=== PATIENT | female | born 1995 | race Caucasian/White ===

== ENCOUNTER 2016-11-20 13:34 | Emergency (ER) | payer OTHER ==
[2016-11-20 13:53] VITALS: BP 133/73
--- NOTE | 2016-11-20 13:57 | UC ---
Respiratory Complaint HPI - HPI Summary HPI Summary: Cough and wheeze for a couple of days, throat hurts with cough - History of Current Complaint Chief Complaint: UCRespiratory Stated Complaint: COUGH Time Seen by Provider: 11/20/16 13:50 Hx Obtained From: Patient Hx Last Menstrual Period: 11/10/16 ?: No Onset/Duration: Sudden Onset, Lasting Days - 3 Timing: Constant Severity Initially: Mild Severity Currently: Mild Pain Intensity: 5 Pain Scale Used: 0-10 Numeric Character: Cough: Nonproductive Aggravating Factors: Nothing Associated Signs And Symptoms: Positive: Pleuritic Chest Pain, URI - Allergies/Home Medications Allergies/Adverse Reactions: Allergies Allergy/AdvReac Type Severity Reaction Status Date / Time No Known Allergies Allergy Verified 02/28/16 21:28 PMH/Surg Hx/FS Hx/Imm Hx Previously Healthy: No Endocrine History Of: Reports: Diabetes Cardiovascular History Of: Denies: Hypertension, Congestive Heart Failure Respiratory History Of: Reports: Asthma GI/ History Of: Denies: Renal Disease Psychological History Of: Reports: Anxiety, Depression - Surgical History Surgical History: None - Family History Known Family History: Positive: None Family History: no cardio vascular issues reported in family lineage - Social History Occupation: Unemployed Lives: With Family Alcohol Use: None Substance Use Type: None Smoking Status (MU): Never Smoked Tobacco - Immunization History Most Recent Influenza Vaccination: 2016 Most Recent Tetanus Shot: Unknown Most Recent Pneumonia Vaccination: Never Review of Systems Constitutional: Negative Skin: Negative Eyes: Negative ENT: Sore Throat - with cough Respiratory: Cough Cardiovascular: Negative Gastrointestinal: Negative Genitourinary: Negative Motor: Negative Neurovascular: Negative Musculoskeletal: Negative Neurological: Negative Psychological: Negative All Other Systems Reviewed And Are Negative: Yes Physical Exam Triage Information Reviewed: Yes Appearance: No Pain Distress, Ill-Appearing - mild, Obese Vital Signs: Initial Vital Signs Temp 99.0 F 11/20/16 13:50 Pulse 85 11/20/16 13:50 Resp 16 11/20/16 13:50 BP 133/73 11/20/16 13:50 Pulse Ox 99 11/20/16 13:50 Vital Signs Reviewed: Yes Eye Exam: Normal Eyes: Positive: Conjunctiva Clear ENT Exam: Normal ENT: Positive: Normal ENT inspection, Hearing grossly normal, Pharynx normal, TMs normal. Negative: Nasal congestion, Nasal drainage, Tonsillar swelling, Tonsillar exudate, Trismus, Muffled/hoarse voice Dental Exam: Normal Neck exam: Normal Neck: Positive: Supple, Nontender, No Lymphadenopathy Respiratory Exam: Normal Respiratory: Positive: Chest non-tender, No respiratory distress, No accessory muscle use, Wheezing Cardiovascular Exam: Normal Cardiovascular: Positive: RRR, No Murmur, Pulses Normal, Brisk Capillary Refill Musculoskeletal Exam: Normal Musculoskeletal: Positive: Strength Intact, ROM Intact, No Edema Neurological Exam: Normal Neurological: Positive: Alert, Muscle Tone Normal Psychological Exam: Normal Skin Exam: Normal UC Diagnostic Evaluation - Laboratory O2 Sat by Pulse Oximetry: 99 Respiratory Course/Dx - Course Course Of Treatment: Zithromax, ibuprofen, albuterol inhaler, increase fluids, follow with pcp - Differential Dx/Diagnosis Differential Diagnosis/HQI/PQRI: Asthma, Bronchitis, Laryngitis, Lower Resp Infection, Sinusitis Provider Diagnoses: Bronchitis, IDDM Type 1 Discharge - Discharge Plan Condition: Stable Disposition: AGAINST MEDICAL ADVICE Prescriptions: Albuterol HFA INHALER* [Ventolin HFA Inhaler*] 2 puff INH Q6H PRN #1 mdi PRN Reason: Cough/wheeze Azithromycin TAB* [Zithromax TAB (Z-HANK) 250 mg #6 tabs] 2 tab PO .TODAY, THEN 1 DAILY #1 hank Patient Education Materials: How to Use a Metered-Dose Inhaler (ED), Acute Bronchitis (ED) Referrals: Vasquez Crowder, PHILOS[facility]HY [facility] [Primary Care Provider] - If Needed
== END 2016-11-20 14:05 | disposition left against medical advice (07) ==
LOC: UCEAST 13:34
DX: J40 Bronchitis, not specified as acute or chronic (principal); E10.9 Type 1 diabetes mellitus without complications; E66.9 Obesity, unspecified; Z79.4 Long term (current) use of insulin
CPT/HCPCS: 99212; G0463

== ENCOUNTER 2017-04-28 00:27 | Emergency (ER) | payer OTHER ==
[2017-04-28] MEDS ORDERED: Sulfamethox/Trimethoprim DS 800/160* TAB PO ONE (02:08)
--- NOTE | 2017-04-28 02:15 | ED ---
Skin Complaint - HPI Summary HPI Summary: Pt here w/ Lt breast wound x 5 days. Started as pimple then ruptured - pressure relieved but area is sore, draining and sugar is higher than usual (Type 1 diabetes). Denies fever, chills, nausea, vomiting. Admits to h/o recurrent skin infections but she's not sure the organism nor which antibiotics work best for her. She does recall she had IV vancomycin at [facility] last time she was there for a skin infection. No other issues to report. - History of Current Complaint Chief Complaint: EDRashSkinAbscess Time Seen by Provider: 04/28/17 01:44 Stated Complaint: BOIL UNDER LT BREAST Hx Obtained From: Patient, Family/Rn Intern - boyfriend Hx Last Menstrual Period: 11/10/16 Pain Intensity: 8 - Allergy/Home Medications Allergies/Adverse Reactions: Allergies Allergy/AdvReac Type Severity Reaction Status Date / Time No Known Allergies Allergy Verified 02/28/16 21:28 PMH/Surg Hx/FS Hx/Imm Hx Previously Healthy: Yes Endocrine/Hematology History: Reports: Hx Diabetes - type 1 - uses insulin pump Denies: Hx Anticoagulant Therapy, Hx Blood Disorders Cardiovascular History: Denies: Hx Congestive Heart Failure, Hx Hypertension Respiratory History: Reports: Hx Asthma History: Denies: Hx Renal Disease Sensory History: Reports: Hx Contacts or Glasses Opthamlomology History: Reports: Hx Contacts or Glasses Psychiatric History: Reports: Hx Anxiety, Hx Depression - Immunization History Date of Tetanus Vaccine: Unk Date of Influenza Vaccine: Fall 2014 Infectious Disease History: No Infectious Disease History: Reports: Hx of Known/Suspected MRSA - tx'd w/ IV vancomycin at [facility] - unsure of MRSA status Denies: Traveled Outside the [place] in Last 30 Days - Family History Known Family History: Positive: Diabetes - sister and grandmother Family History: no cardio vascular issues reported in family lineage - Social History Occupation: Unemployed Lives: With Family Alcohol Use: None Hx Substance Use: No Substance Use Type: Reports: None Hx Tobacco Use: No Smoking Status (MU): Never Smoked Tobacco Review of Systems Constitutional: Negative Negative: Fever, Chills, Fatigue Cardiovascular: Negative Respiratory: Negative Gastrointestinal: Negative Positive: no symptoms reported Musculoskeletal: Negative Skin: Other - see HPI Neurological: Negative Negative: Headache Psychological: Normal All Other Systems Reviewed And Are Negative: Yes Physical Exam Triage Information Reviewed: Yes Vital Signs On Initial Exam: Initial Vitals Temp Pulse Resp BP Pulse Ox 96.5 F 106 22 131/55 97 04/28/17 00:29 04/28/17 00:29 04/28/17 00:29 04/28/17 00:29 04/28/17 00:29 Vital Signs Reviewed: Yes Appearance: Positive: Well-Appearing, No Pain Distress, Obese Skin: Positive: Warm - open dime sized wound over Lt inferior breast w/ surrounding erythema - appears to be ulcerated w/ dying tissue present (yellow/ green - attached to underlying tissue which is granular and pink - friable) - drainage is serosanginous w/ tinged purulent; 3mm area of similar wound on RUQ - covered w/ bandaid - no drainage, no erythema Head/Face: Positive: Normal Head/Face Inspection Eyes: Positive: EOMI ENT: Positive: Hearing grossly normal Respiratory/Lung Sounds: Positive: Breath Sounds Present Cardiovascular: Positive: Normal, RRR Musculoskeletal: Positive: Normal, Strength/ROM Intact Neurological: Positive: Normal, Alert, Oriented to Person Place, Time, CN Intact II-III Psychiatric: Positive: Normal Diagnostics - Vital Signs Vital Signs Temp Pulse Resp BP Pulse Ox 04/28/17 00:29 96.5 F 106 22 131/55 97 - Laboratory Lab Statement: Any lab studies that have been ordered have been reviewed, and results considered in the medical decision making process. Course/Dx - Course Course Of Treatment: Pt appears to have rutpured left breast abscess w/ inflammation, possibly infection. Offered to anesthestize area and debride however pt prefers to simply start anbx and f/u w/ PCP. Will cover for MRSA as she has h/o vancomycin tx at [facility] for skin infection in the past. Cx taken today - will call w/ results and change medication as needed. Reviewed danger s/ sx of when to return to ED. She will continue to monitor glucose levels as well. - Diagnoses Provider Diagnoses: Left breast abscess Discharge - Discharge Plan Condition: Stable Disposition: HOME Prescriptions: Sulfamethox/Trimethoprim DS* [Bactrim DS 800/160 TAB*] 1 tab PO BID #19 tab Patient Education Materials: Abscess (ED) Referrals: Vasquez Crowder NP [Primary Care Provider] - Additional Instructions: Wash area with soap and water 2x day - pat dry with clean cloth and redress with gauze Complete antibiotic as directed You may take ibuprofen 600mg every 6 hours with food as needed for pain You may also alternate heat and ice for pain Follow-up with your PCP for wound recheck by Wednesday. Call tomorrow to schedule an appointment. *If you develop fever, chills, vomiting, return to ED
[2017-04-28 02:16] VITALS: BP 117/61
--- NOTE | 2017-05-03 09:08 | PN ---
Progress Note - Progress Note Date of Service: 04/28/17 Note: Wound culture grew s. aureus withi negative MRSA Patient placed on Bactrim prior to discharge. Culture shows sensitivities to Bactrim. Nothing further at this time, Kayla Garcia PA-C
== END 2017-04-28 02:24 | disposition home or self-care (01) ==
LOC: ED 00:27
DX: N61.1 Abscess of the breast and nipple (principal); E10.8 Type 1 diabetes mellitus with unspecified complications
CPT/HCPCS: 87070; 87077; 87186; 87205; 87640; 87641; 99282; A9270-GY

== ENCOUNTER 2018-04-30 20:43 | Emergency (ER) | payer OTHER ==
--- NOTE | 2018-04-30 21:23 | ED ---
GI/ HPI - HPI Summary HPI Summary: 22-year-old female presents with flank pain for the past 4 days. She has been having dysuria. She also been having a cough. No chest pain. She notes occasional shortness breath. She has history of asthma. She notes nausea but no vomiting. No fevers. She does have type 1 diabetic. States that when this started her pump was not working but she has since fixed her pump and her her sugars have been normal. She denies any constipation but admits to diarrhea. She admits to lower bowel pain. No vaginal discharge. She has history UTIs denies history of pyelonephritis. no Hematuria. - History of Current Complaint Chief Complaint: EDFlankPain Time Seen by Provider: 04/30/18 21:15 Stated Complaint: BILATERAL KIDNEY PAIN Hx Last Menstrual Period: 11/10/16 Pain Intensity: 8 - Allergy/Home Medications Allergies/Adverse Reactions: Allergies Allergy/AdvReac Type Severity Reaction Status Date / Time vancomycin Allergy Hives Verified 04/30/18 20:46 PMH/Surg Hx/FS Hx/Imm Hx Endocrine/Hematology History: Reports: Hx Diabetes - type 1 - uses insulin pump Denies: Hx Anticoagulant Therapy, Hx Blood Disorders Cardiovascular History: Denies: Hx Congestive Heart Failure, Hx Hypertension Respiratory History: Reports: Hx Asthma History: Denies: Hx Renal Disease Sensory History: Reports: Hx Contacts or Glasses Opthamlomology History: Reports: Hx Contacts or Glasses Psychiatric History: Reports: Hx Anxiety, Hx Depression - Immunization History Date of Tetanus Vaccine: Unk Date of Influenza Vaccine: Fall 2014 Infectious Disease History: No Infectious Disease History: Reports: Hx of Known/Suspected MRSA - tx'd w/ IV vancomycin at [facility] - unsure of MRSA status Denies: Traveled Outside the in Last 30 Days - Family History Known Family History: Positive: None, Diabetes - sister and grandmother Family History: no cardio vascular issues reported in family lineage - Social History Alcohol Use: None Hx Substance Use: No Substance Use Type: Reports: None Hx Tobacco Use: No Smoking Status (MU): Never Smoked Tobacco Review of Systems Negative: Fever Negative: Chest Pain Negative: Shortness Of Breath Positive: Abdominal Pain, Nausea. Negative: Vomiting Positive: dysuria, flank pain All Other Systems Reviewed And Are Negative: Yes Physical Exam Triage Information Reviewed: Yes Vital Signs On Initial Exam: Initial Vitals Temp Pulse Resp BP Pulse Ox 97.6 F 100 20 146/78 97 04/30/18 20:45 04/30/18 20:45 04/30/18 20:45 04/30/18 20:45 04/30/18 20:45 Vital Signs Reviewed: Yes Appearance: Positive: Well-Appearing Skin: Positive: Warm, Dry Head/Face: Positive: Normal Head/Face Inspection Eyes: Positive: Normal, Conjunctiva Clear ENT: Positive: Pharynx normal Respiratory/Lung Sounds: Positive: Clear to Auscultation, Breath Sounds Present Cardiovascular: Positive: Normal, RRR Abdomen Description: Positive: Nontender, Soft, CVA Tenderness (R), CVA Tenderness (L) Bowel Sounds: Positive: Present Musculoskeletal: Positive: Normal Neurological: Positive: Normal Psychiatric: Positive: Normal Diagnostics - Vital Signs Vital Signs Temp Pulse Resp BP Pulse Ox 04/30/18 20:45 97.6 F 100 20 146/78 97 - Laboratory Result Diagrams: 04/30/18 21:30 04/30/18 21:30 Lab Statement: Any lab studies that have been ordered have been reviewed, and results considered in the medical decision making process. - Radiology chest Xray Interpretation: No Acute Changes Radiology Interpretation Completed By: ED Physician - Ultrasound No standard instances Ultrasound Interpretation: No Acute Changes Ultrasound Interpretation Completed By: Radiologist HARINI Course/Dx - Course Course Of Treatment: 22-year-old female presents with flank pain for the past 4 days. She has been having dysuria. She also been having a cough. No chest pain. She notes occasional shortness breath. She has history of asthma. She notes nausea but no vomiting. No fevers. She does have type 1 diabetic. States that when this started her pump was not working but she has since fixed her pump and her her sugars have been normal. She denies any constipation but admits to diarrhea. She admits to lower bowel pain. No vaginal discharge. She has history UTIs denies history of pyelonephritis. no Hematuria. on exam has tenderness CVA. lungs CTA. nontender abd. wbc slightly elevated. urine normal. renal u/s normal. chest xray normal. will give tessalon as likely bronchitis causing referred pain in chest wall. patient states asthma is well controlled so will not add on steriod. pateitn understand and agrees with plan. - Diagnoses Differential Diagnoses - Female: Pyelonephritis, Urinary Tract Infection, Ureteral Calculi Provider Diagnoses: Flank pain, Cough Discharge - Sign-Out/Discharge Documenting (check all that apply): Patient Departure - Discharge Plan Condition: Good Disposition: HOME Prescriptions: Benzonatate CAP* [Tessalon 100 MG CAP*] 100 mg PO TID #21 cap Ibuprofen TAB* [Motrin TAB* 600 MG] 600 mg PO Q8H PRN #20 tab PRN Reason: Pain Patient Education Materials: Acute Bronchitis (ED) Referrals: Vasquez Crowder NP [Primary Care Provider] - Additional Instructions: symptoms likely due to bronchitis Use Tessalon three times a day for cough take tyenlol or ibuprofen every 6 hours as needed for pain Follow up with primary care physician in 5 days Return to ED if develop any new or worsening symptoms - Billing Disposition and Condition Condition: GOOD Disposition: Home
[2018-04-30] MEDS ORDERED: Ondansetron ODT TAB* 4 MG PO ONE (21:25)
[2018-04-30 21:39] LABS: Urine Appearance Clear; Urine Blood Negative (Negative); Urine Color Straw; Urine Ketones Negative (Negative); Urine Protein Negative (Negative); Urine Specific Gravity 1.004 (1.010-1.030); Urine Urobilinogen Negative (Negative)
[2018-04-30 21:46] LABS: ABS Basophils 0 10^3/ul (0-0.2); ABS Eosinophils 0.5 10^3/ul (0-0.6); ABS Lymphocytes 2.6 10^3/ul (1.0-4.8); ABS Monocytes 0.8 10^3/ul (0-0.8); ABS Neutrophils 7.9 10^3/ul (1.5-7.7); ABS Nucleated RBC 0 10^3/ul; Eosinophil % 4.6 % (0-6); Hematocrit 38 % (35-47); Hemoglobin 12.8 g/dl (12.0-16.0); Lymphocyte % 22.2 % (25-47); Mean Corpuscular HGB Conc 33 g/dl (31-36); Mean Corpuscular Hemoglobin 30 pg (27-31); Mean Corpuscular Volume 90 fL (80-97); Mean Platelet Volume 7.8 um3 (7.4-10.4); Nucleated Red Blood Cells % 0; Platelet Count 354 10^3/ul (150-450); Red Blood Count 4.28 10^6/ul (4.00-5.40); Red Cell Distribution Width 14 % (10.5-15); White Blood Count 11.9 10^3/ul (3.5-10.8)
--- NOTE | 2018-04-30 21:57 | RAD ---
EXAM: US Retroperitoneal Complete, Renal CLINICAL HISTORY: 22 years old, female; Pain; Other: Flank; Additional info: Bilateral flank pain TECHNIQUE: Real-time ultrasound of the retroperitoneum (complete) with image documentation. COMPARISON: No relevant prior studies available. FINDINGS: Right kidney: 11.1 x 4.9 x 4.2 cm. No hydronephrosis or nephrolithiasis. Renal cortical thickness is normal. Blood flow normal. Left kidney: 11 x 4.3 x 6 cm. No hydronephrosis or nephrolithiasis. Renal cortical thickness is normal. Normal blood flow. IMPRESSION: Normal appearance to the right and left kidneys. No hydronephrosis or nephrolithiasis. R0
[2018-04-30] MEDS ORDERED: Ibuprofen TAB* 600 MG PO ONE (22:55)
[2018-04-30] MEDS ORDERED: Benzonatate CAP* 100 MG PO ONE (22:55)
[2018-04-30 23:44] VITALS: BP 142/77
--- NOTE | 2018-05-01 07:32 | RAD ---
HISTORY: cough COMPARISONS: January 05, 2016 VIEWS: 4: Frontal dual-energy and lateral views of the chest. FINDINGS: CARDIOMEDIASTINAL SILHOUETTE: The cardiomediastinal silhouette is normal. REBEKAH: The rebekah are normal. PLEURA: The costophrenic angles are sharp. No pleural abnormalities are noted. LUNG PARENCHYMA: The lungs are clear. ABDOMEN: The upper abdomen is clear. There is no subphrenic gas. BONES AND SOFT TISSUES: No bone or soft tissue abnormalities are noted. OTHER: None. IMPRESSION: NO ACTIVE CARDIOPULMONARY DISEASE. R0
== END 2018-04-30 23:45 | disposition home or self-care (01) ==
LOC: ED 20:43
DX: R10.9 Unspecified abdominal pain (principal); R05 Cough; E10.9 Type 1 diabetes mellitus without complications; J45.909 Unspecified asthma, uncomplicated; Z88.3 Allergy status to other anti-infective agents; Z79.4 Long term (current) use of insulin; Z96.41 Presence of insulin pump (external) (internal); Z87.440 Personal history of urinary (tract) infections
CPT/HCPCS: 36415; 71046; 76775; 80053; 81003; 84702; 85025; 85379; 86140; 99283; A9270-GY

== ENCOUNTER 2018-07-04 21:17 | Emergency (ER) | payer OTHER ==
[2018-07-04 22:11] LABS: ABS Basophils 0 10^3/ul (0-0.2); ABS Eosinophils 0.8 10^3/ul (0-0.6); ABS Lymphocytes 2.5 10^3/ul (1.0-4.8); ABS Monocytes 0.8 10^3/ul (0-0.8); ABS Neutrophils 6.4 10^3/ul (1.5-7.7); ABS Nucleated RBC 0 10^3/ul; Eosinophil % 7.8 % (0-6); Hematocrit 42 % (35-47); Hemoglobin 14.2 g/dl (12.0-16.0); Lymphocyte % 23.7 % (25-47); Mean Corpuscular HGB Conc 34 g/dl (31-36); Mean Corpuscular Hemoglobin 31 pg (27-31); Mean Corpuscular Volume 90 fL (80-97); Mean Platelet Volume 7.8 um3 (7.4-10.4); Nucleated Red Blood Cells % 0; Platelet Count 355 10^3/ul (150-450); Red Blood Count 4.64 10^6/ul (4.00-5.40); Red Cell Distribution Width 13 % (10.5-15); White Blood Count 10.5 10^3/ul (3.5-10.8)
[2018-07-04 22:27] LABS: EGFR Non-African American 82.2 (>60)
[2018-07-04 23:01] LABS: Urine Appearance Clear; Urine Blood Negative (Negative); Urine Color Colorless; Urine Ketones Negative (Negative); Urine Protein Negative (Negative); Urine Specific Gravity 1.002 (1.010-1.030); Urine Urobilinogen Negative (Negative)
--- NOTE | 2018-07-04 23:31 | ED ---
HPI Diabetic - HPI Summary HPI Summary: 22-year-old female presents with possible DKA today. She states that her insulin pump ran out of insulin. She states today she noticed that her sugars were high today and tested pos for ketones. her primary told to come here. She admits to headache. She admits to frequent urination. She states she may be as her period is late. She is a type I diabetic and has history of asthma. She denies any cough. No abd pain. She states she is nauseous denies any vomiting. No chest pain or shortness breath. - History Of Current Complaint Chief Complaint: EDDiabeticProb Time Seen by Provider: 07/04/18 22:32 Hx Last Menstrual Period: 11/10/16 - Allergies/Home Medications Allergies/Adverse Reactions: Allergies Allergy/AdvReac Type Severity Reaction Status Date / Time vancomycin Allergy Hives Verified 04/30/18 20:46 wheat Allergy Diarrhea Verified 07/04/18 21:25 Home Medications: Home Medications Cholecalciferol TAB* [Vitamin D TAB*] 1,000 unit PO DAILY 07/04/18 [History Confirmed 07/04/18] Loratadine [Claritin 10 MG CAP] 10 mg PO DAILY 07/04/18 [History Confirmed 07/04] PMH/Surg Hx/FS Hx/Imm Hx Endocrine/Hematology History: Reports: Hx Diabetes - type 1 - uses insulin pump Denies: Hx Anticoagulant Therapy, Hx Blood Disorders Cardiovascular History: Denies: Hx Congestive Heart Failure, Hx Hypertension Respiratory History: Reports: Hx Asthma History: Denies: Hx Renal Disease Sensory History: Reports: Hx Contacts or Glasses Opthamlomology History: Reports: Hx Contacts or Glasses Psychiatric History: Reports: Hx Anxiety, Hx Depression - Immunization History Date of Tetanus Vaccine: Unk Date of Influenza Vaccine: Fall 2014 Infectious Disease History: No Infectious Disease History: Reports: Hx of Known/Suspected MRSA - tx'd w/ IV vancomycin at [facility] - unsure of MRSA status Denies: Traveled Outside the [place] in Last 30 Days - Family History Known Family History: Positive: None, Diabetes - sister and grandmother Family History: no cardio vascular issues reported in family lineage - Social History Alcohol Use: Occasionally Hx Substance Use: No Substance Use Type: Reports: Marijuana Hx Tobacco Use: No Smoking Status (MU): Never Smoked Tobacco Review of Systems Negative: Fever Negative: Chest Pain Negative: Shortness Of Breath Positive: Headache All Other Systems Reviewed And Are Negative: Yes Physical Exam Triage Information Reviewed: Yes Vital Signs On Initial Exam: Initial Vitals Temp Pulse Resp BP Pulse Ox 98.4 F 98 16 136/100 98 07/04/18 21:22 07/04/18 21:22 07/04/18 21:22 07/04/18 21:22 07/04/18 21:22 Vital Signs Reviewed: Yes Appearance: Positive: Well-Appearing Skin: Positive: Warm, Dry Head/Face: Positive: Normal Head/Face Inspection Eyes: Positive: Normal, Conjunctiva Clear ENT: Positive: Pharynx normal Respiratory/Lung Sounds: Positive: Clear to Auscultation, Breath Sounds Present Cardiovascular: Positive: Normal, RRR Abdomen Description: Positive: Nontender, Soft Bowel Sounds: Positive: Present Musculoskeletal: Positive: Normal Neurological: Positive: Sensory/Motor Intact, Alert, Oriented to Person Place, Time, CN Intact II-III Psychiatric: Positive: Normal Diagnostics - Vital Signs Vital Signs Temp Pulse Resp BP Pulse Ox 07/04/18 21:22 98.4 F 98 16 136/100 98 - Laboratory Lab Results: Lab Results 07/04/18 07/04/18 07/04/18 Range/Units 21:34 21:59 22:00 WBC 10.5 (3.5-10.8) 10^3/ul RBC 4.64 (4.00-5.40) 10^6/ul Hgb 14.2 (12.0-16.0) g/dl Hct 42 (35-47) % MCV 90 (80-97) fL MCH 31 (27-31) pg MCHC 34 (31-36) g/dl RDW 13 (10.5-15) % Plt Count 355 (150-450) 10^3/ul MPV 7.8 (7.4-10.4) um3 Neut % (Auto) 60.8 (38-83) % Lymph % (Auto) 23.7 L (25-47) % [place] % (Auto) 7.4 H (0-7) % Eos % (Auto) 7.8 H (0-6) % Baso % (Auto) 0.3 (0-2) % Absolute Neuts (auto) 6.4 (1.5-7.7) 10^3/ul Absolute Lymphs (auto) 2.5 (1.0-4.8) 10^3/ul Absolute Monos (auto) 0.8 (0-0.8) 10^3/ul Absolute Eos (auto) 0.8 H (0-0.6) 10^3/ul Absolute Basos (auto) 0 (0-0.2) 10^3/ul Absolute Nucleated RBC 0 10^3/ul Nucleated RBC % 0 VBG pH (7.33-7.43) VBG pCO2 (41-51) mmHg VBG pO2 (35-45) mmHg VBG HCO3 (24-28) mmol/L VBG O2 Saturation (70-80) % VBG Base Excess (0-4) Sodium 137 (135-145) mmol/L Potassium 4.1 (3.5-5.0) mmol/L Chloride 103 (101-111) mmol/L Carbon Dioxide 28 (22-32) mmol/L Anion Gap 6 (2-11) mmol/L BUN 13 (6-24) mg/dL Creatinine 0.87 (0.51-0.95) mg/dL Est GFR ( Amer) 99.5 (>60) Est GFR (Non-Af Amer) 82.2 (>60) BUN/Creatinine Ratio 14.9 (8-20) Glucose 120 H (70-100) mg/dL POC Glucose (mg/dL) 125 H (70-100) mg/dL Lactic Acid (0.5-2.0) mmol/L Calcium 9.8 (8.6-10.3) mg/dL Total Bilirubin 0.30 (0.2-1.0) mg/dL AST 16 (13-39) U/L ALT 16 (7-52) U/L Alkaline Phosphatase 131 H (34-104) U/L C-Reactive Protein 21.34 H (<8.01) mg/L Total Protein 7.6 (6.4-8.9) g/dL Albumin 4.1 (3.2-5.2) g/dL Globulin 3.5 (2-4) g/dL Albumin/Globulin Ratio 1.2 (1-3) Beta HCG, Quant < 0.60 mIU/mL Urine Color Urine Appearance Urine pH (5-9) Ur Specific [place] (1.010-1.030) Urine Protein (Negative) Urine Ketones (Negative) Urine Blood (Negative) Urine Nitrate (Negative) Urine Bilirubin (Negative) Urine Urobilinogen (Negative) Ur Leukocyte Esterase (Negative) Urine Glucose (Negative) 07/04/18 07/04/18 07/04/18 Range/Units 22:00 22:00 22:54 WBC (3.5-10.8) 10^3/ul RBC (4.00-5.40) 10^6/ul Hgb (12.0-16.0) g/dl Hct (35-47) % MCV (80-97) fL MCH (27-31) pg MCHC (31-36) g/dl RDW (10.5-15) % Plt Count (150-450) 10^3/ul MPV (7.4-10.4) um3 Neut % (Auto) (38-83) % Lymph % (Auto) (25-47) % [place] % (Auto) (0-7) % Eos % (Auto) (0-6) % Baso % (Auto) (0-2) % Absolute Neuts (auto) (1.5-7.7) 10^3/ul Absolute Lymphs (auto) (1.0-4.8) 10^3/ul Absolute Monos (auto) (0-0.8) 10^3/ul Absolute Eos (auto) (0-0.6) 10^3/ul Absolute Basos (auto) (0-0.2) 10^3/ul Absolute Nucleated RBC 10^3/ul Nucleated RBC % VBG pH 7.38 (7.33-7.43) VBG pCO2 50 (41-51) mmHg VBG pO2 31 L (35-45) mmHg VBG HCO3 26.5 (24-28) mmol/L VBG O2 Saturation 68.6 L (70-80) % VBG Base Excess 3.3 (0-4) Sodium (135-145) mmol/L Potassium (3.5-5.0) mmol/L Chloride (101-111) mmol/L Carbon Dioxide (22-32) mmol/L Anion Gap (2-11) mmol/L BUN (6-24) mg/dL Creatinine (0.51-0.95) mg/dL Est GFR ( Amer) (>60) Est GFR (Non-Af Amer) (>60) BUN/Creatinine Ratio (8-20) Glucose (70-100) mg/dL POC Glucose (mg/dL) (70-100) mg/dL Lactic Acid 1.2 (0.5-2.0) mmol/L Calcium (8.6-10.3) mg/dL Total Bilirubin (0.2-1.0) mg/dL AST (13-39) U/L ALT (7-52) U/L Alkaline Phosphatase (34-104) U/L C-Reactive Protein (<8.01) mg/L Total Protein (6.4-8.9) g/dL Albumin (3.2-5.2) g/dL Globulin (2-4) g/dL Albumin/Globulin Ratio (1-3) Beta HCG, Quant mIU/mL Urine Color Colorless Urine Appearance Clear Urine pH 6.0 (5-9) Ur Specific [place] 1.002 L (1.010-1.030) Urine Protein Negative (Negative) Urine Ketones Negative (Negative) Urine Blood Negative (Negative) Urine Nitrate Negative (Negative) Urine Bilirubin Negative (Negative) Urine Urobilinogen Negative (Negative) Ur Leukocyte Esterase Negative (Negative) Urine Glucose Negative (Negative) Result Diagrams: 07/04/18 21:59 07/04/18 22:00 Lab Statement: Any lab studies that have been ordered have been reviewed, and results considered in the medical decision making process. Diabetic Course/Dx - Course Course Of Treatment: 22-year-old female presents with possible DKA today. She states that her insulin pump ran out of insulin. She states today she noticed that her sugars were high today and tested pos for ketones. her primary told to come here. She admits to headache. She admits to frequent urination. She states she may be as her period is late. She is a type I diabetic and has history of asthma. She denies any cough. No abd pain. She states she is nauseous denies any vomiting. No chest pain or shortness breath. On exam normal neuro exam. Labs white blood count normal. Glucose is normal. vbg normal bicarb and lactic normal. No ketones in urine. Not . Discuss is not currently DKA. Told to continue giving insulin and follow with primary about insulin for insulin pump. Gave Toradol for her headache. Patient understands and agrees with plan. - Diagnoses Differential Dx: Diabetic Ketoacidosis, Hyperglycemia, Hyperosmolar State Provider Diagnoses: Diabetes, Headache Discharge - Sign-Out/Discharge Documenting (check all that apply): Patient Departure - Discharge Plan Condition: Good Disposition: HOME Referrals: Vasquez Crowder NP [Primary Care Provider] - Additional Instructions: Follow up with primary Return to ED if develop any new or worsening symptoms - Billing Disposition and Condition Condition: GOOD Disposition: Home
[2018-07-04] MEDS ORDERED: Ketorolac INJ* 30 MG/ML 1 ML VIAL IM ONE (23:34)
[2018-07-04 23:51] VITALS: BP 117/69
== END 2018-07-04 23:50 | disposition home or self-care (01) ==
LOC: ED 21:17
DX: R51 Headache (principal); E11.9 Type 2 diabetes mellitus without complications; R35.0 Frequency of micturition
CPT/HCPCS: 36415; 80053; 81003; 82803; 83605; 84702; 85025; 86140; 96372; 99282; J1885

== ENCOUNTER 2019-02-01 11:14 | Emergency (ER) | payer OTHER ==
[2019-02-01 11:33] VITALS: BP 150/92
[2019-02-01] MEDS ORDERED: Ondansetron ODT TAB* 4 MG SL ONE (12:13)
--- NOTE | 2019-02-01 12:31 | UC ---
Abdominal Pain Female HPI - HPI Summary HPI Summary: 23 yo female presents with cough and chest congestion for the last 4-5 days. Today she woke up and vomited 2-3 times. Has been tolerating fluids and bites of food since that time. She states she is a type 1 diabetic and is concerned what her sugars may be as she does not check them daily. She does not smoke. Has not been taking anything OTC. Denies fever, chills, SOB, chest pain, abdominal pain. She has a hx of asthma and had an albuterol inhaler, but is has misplaced it and has not used it in a long time. - History of Current Complaint Chief Complaint: UCGI Stated Complaint: VOMITING CHEST CONGESTION Time Seen by Provider: 02/01/19 12:02 Hx Obtained From: Patient Hx Last Menstrual Period: 11/10/16 Onset/Duration: Gradual Onset Severity Initially: Moderate Severity Currently: Moderate Pain Intensity: 6 Pain Scale Used: 0-10 Numeric Allergies/Adverse Reactions: Allergies Allergy/AdvReac Type Severity Reaction Status Date / Time vancomycin Allergy Hives Verified 02/01/19 11:33 wheat Allergy Diarrhea Verified 02/01/19 11:33 Home Medications: Home Medications Insulin Lispro [Admelog] 100 unit SQ 02/01/19 [History] PMH/Surg Hx/FS Hx/Imm Hx Endocrine History: Diabetes Respiratory History: Asthma Other History Of: Negative For: Anticoagulant Therapy - Surgical History Surgical History: None - Family History Known Family History: Positive: Diabetes - sister and grandmother Family History: no cardio vascular issues reported in family lineage - Social History Occupation: Employed Full-time Alcohol Use: Occasionally Substance Use Type: None Smoking Status (MU): Never Smoked Tobacco - Immunization History Most Recent Influenza Vaccination: 2016 Most Recent Tetanus Shot: Unknown Most Recent Pneumonia Vaccination: Never Review of Systems All Other Systems Reviewed And Are Negative: Yes Constitutional: Positive: Negative Skin: Positive: Negative Eyes: Positive: Negative ENT: Positive: Nasal Discharge, Sinus Congestion, Sinus Pain/Tenderness Respiratory: Positive: Cough Cardiovascular: Positive: Negative Gastrointestinal: Positive: Vomiting, Nausea Genitourinary: Positive: Negative Neurovascular: Positive: Negative Neurological: Positive: Negative Psychological: Positive: Negative Physical Exam - Summary Physical Exam Summary: GENERAL: NAD. WDWN. No pain distress. SKIN: No rashes, sores, lesions, or open wounds. HEENT: Head: AT/NC Eyes: Conjunctiva clear without inflammation or discharge. Ears: Hearing grossly normal. TMs intact, no bulging, erythema, or edema. Nose: Nasal mucosa pink and moist. NTTP maxillary and frontal sinus. Throat: Posterior oropharynx without exudates, erythema, or tonsillar enlargement. Uvula midline. NECK: Supple. Nontender. No lymphadenopathy. CHEST: Mild wheezing throughout. No r/r. No accessory muscle use. Breathing comfortably and in no distress. CV: RRR. Without m/r/g. Pulses intact. Cap refill <2seconds ABDOMEN: Soft. NTTP. No distention or guarding. No CVA tenderness. Bowel sounds present NEURO: Alert. PSYCH: Age appropriate behavior. Triage Information Reviewed: Yes Vital Signs: Initial Vital Signs Temp 98.7 F 02/01/19 11:31 Pulse 112 02/01/19 11:31 Resp 18 02/01/19 11:31 BP 150/92 02/01/19 11:31 Pulse Ox 96 02/01/19 11:31 Laboratory Tests 02/01/19 12:33 POC Urine Color Yellow POC Urine Clarity Clear POC Urine pH 8.5 POC Ur Specif [place] 1.020 POC Urine Protein Negative POC Ur Glucose (UA) Negative POC Urine Ketones Negative POC Urine Blood Trace-intact A POC Urine Nitrite Negative POC Urine Bilirubin Negative POC Urine Urobilinogen 0.2 POC U Leukocyte Esteras Negative Vital Signs Reviewed: Yes Abd Pain Female Course/Dx - Course Course Of Treatment: CXR: IMPRESSION: NO EVIDENCE FOR ACTIVE CARDIOPULMONARY DISEASE. Duoneb: Significant improvement s/p. Feels easier to take a deep breath. Less wheezing on exam, but still with mild wheezing to right lung base. POC glucose 92. Suspect bronchitis vs asthma exacerbation. Will rx for anbx given her DM hx in addition to albuterol and tessalon. - Differential Dx/Diagnosis Provider Diagnosis: Bronchitis Discharge - Sign-Out/Discharge Documenting (check all that apply): Patient Departure All imaging exams completed and their final reports reviewed: Yes - Discharge Plan Condition: Stable Disposition: HOME Prescriptions: Albuterol HFA INHALER* [Ventolin HFA Inhaler*] 2 puff INH Q6H PRN #1 mdi PRN Reason: Wheezing Azithromycin TAB* [Zithromax TAB (Z-HANK) 250 mg #6 tabs] 2 tab PO .TODAY, THEN 1 DAILY #1 hank Benzonatate CAP* [Tessalon 100 MG CAP*] 100 mg PO TID PRN #21 cap PRN Reason: Cough Patient Education Materials: Acute Bronchitis (ED) Forms: *Work Release Referrals: Vasquez Crowder LUMBER STACKER OPERATOR [Primary Care Provider] - Additional Instructions: If you develop a fever, shortness of breath, chest pain, new or worsening symptoms - please call your PCP or go to the ED immediately. Your blood pressure was high at todays visit. Please see your primary provider within 4 weeks for recheck and re-evaluation. - Billing Disposition and Condition Condition: STABLE Disposition: Home
[2019-02-01] MEDS ORDERED: Albuterol/Ipratropium NEB.SOL* Albuterol 2.5 MG/Ipratropium 0.5 MG 3 ML INH ONE (12:43)
== END 2019-02-01 13:31 | disposition home or self-care (01) ==
LOC: UCEAST 11:14
DX: J45.909 Unspecified asthma, uncomplicated (principal); R11.2 Nausea with vomiting, unspecified; E10.9 Type 1 diabetes mellitus without complications; Z79.4 Long term (current) use of insulin
CPT/HCPCS: 71046; 81003; 99212; A9270-GY; G0463

== ENCOUNTER 2019-03-10 18:29 | Emergency (ER) | payer OTHER ==
[2019-03-10 18:54] VITALS: BP 148/92
--- NOTE | 2019-03-10 19:10 | UC ---
Respiratory Complaint HPI - HPI Summary HPI Summary: Ms. Mahajan presents with about a day of coughing, congestion, sore throat and a frontal headache. She is concerned because she has a history of diabetes and asthma. She has been using her rescue inhaler normally. - History of Current Complaint Chief Complaint: UCGeneralIllness Stated Complaint: CHEST CONGESTION Time Seen by Provider: 03/10/19 19:00 Hx Obtained From: Patient Hx Last Menstrual Period: 01/27/19 ?: No Onset/Duration: Gradual Onset Timing: Constant Severity Initially: Mild Severity Currently: Moderate Pain Intensity: 7 Character: Cough: Productive Alleviating Factors: Bronchodilator Associated Signs And Symptoms: Positive: URI, Nasal Congestion - Allergies/Home Medications Allergies/Adverse Reactions: Allergies Allergy/AdvReac Type Severity Reaction Status Date / Time vancomycin Allergy Hives Verified 03/10/19 18:54 wheat Allergy Diarrhea Verified 03/10/19 18:54 PMH/Surg Hx/FS Hx/Imm Hx Previously Healthy: Yes Endocrine History: Diabetes Respiratory History: Asthma Other History Of: Negative For: Anticoagulant Therapy - Surgical History Surgical History: Yes Surgery Procedure, Year, and Place: appy 2015 - Family History Known Family History: Positive: None, Diabetes - sister and grandmother Family History: no cardio vascular issues reported in family lineage - Social History Alcohol Use: None Substance Use Type: None Smoking Status (MU): Never Smoked Tobacco - Immunization History Most Recent Influenza Vaccination: 2016 Most Recent Tetanus Shot: Unknown Most Recent Pneumonia Vaccination: Never Review of Systems All Other Systems Reviewed And Are Negative: Yes Constitutional: Positive: Fatigue ENT: Positive: Sore Throat, Sinus Congestion, Sinus Pain/Tenderness Respiratory: Positive: Cough Physical Exam - Summary Physical Exam Summary: She is nontoxic in appearance with stable vitals. Triage Information Reviewed: Yes Appearance: Well-Appearing, Obese Vital Signs: Initial Vital Signs Temp 98.4 F 03/10/19 18:49 Pulse 95 03/10/19 18:49 Resp 18 03/10/19 18:49 BP 148/92 03/10/19 18:49 Pulse Ox 99 03/10/19 18:49 Vital Signs Reviewed: Yes Eye Exam: Normal ENT: Positive: Pharyngeal erythema, Nasal congestion, Sinus tenderness Neck: Positive: Supple Respiratory: Positive: Normal breath sounds, No respiratory distress Respiratory Course/Dx - Course Course Of Treatment: I think she has a viral URI. I am concerned with her underlying history of asthma and we'll give her a course of Zithromax. - Differential Dx/Diagnosis Provider Diagnosis: Bronchitis Discharge - Sign-Out/Discharge Documenting (check all that apply): Patient Departure All imaging exams completed and their final reports reviewed: No Studies - Discharge Plan Condition: Stable Disposition: HOME Patient Education Materials: Acute Bronchitis (ED) Referrals: Vasquez Crowder ELECTROMYOGRAPHIC TECHNICIAN [Primary Care Provider] - - Billing Disposition and Condition Condition: STABLE Disposition: Home
== END 2019-03-10 19:22 | disposition home or self-care (01) ==
LOC: UCEAST 18:29
DX: J45.909 Unspecified asthma, uncomplicated (principal); E11.9 Type 2 diabetes mellitus without complications
CPT/HCPCS: 99212; G0463

== ENCOUNTER 2019-05-31 10:53 | Emergency (ER) | payer OTHER ==
--- OUTSIDE RECORDS SUMMARY | 2019-05-31 10:58 | XMS REPORT | Continuity of Care Document ---
:1995 External Reference #:[id number] Author Name Vasquez Crowder NP (transmitted by agent of provider Jaqui Mckeon) Address [address] [facility], [place] [address] Care Team Providers Name Role Phone Siena Bowen MD - Internal Care Team Information Daycare Worker [phone] Medicine [facility] - Care Team Information Daycare Worker [phone] Endocrinology, Diabetes & Metabolism Problems Active Problems Provider Date Type 1 diabetes mellitus Vasquez Crowder NP Onset: 10/13/2015 Asthma Vasquez Crowder NP Onset: 10/13/2015 Depressive disorder Vasquez Crowder NP Onset: 10/13/2015 Posttraumatic stress disorder Vasquez Crowder NP Onset: 10/11/2015 Migraine Vasquez Crowder NP Onset: 10/11/2015 Social History Type Date Description Comments Sex Unknown ETOH Use Denies alcohol use Tobacco Use Start: Unknown Patient has never smoked Recreational Drug Use Denies Drug Use Smoking Status Reviewed: 04/21/19 Patient has never smoked Exercise Type/Frequency Exercises rarely Allergies, Adverse Reactions, Alerts Active Allergies Reaction Severity Comments Date Vancomycin Urticaria 04/05/2017 Inactive Allergies NKDA 10/11/2015 Medications Active Medications SIG Qnty Indications Ordering Provider Date Benzonatate take one or two 30caps J06.9 Vasquez Crowder NP 04/21/2019 100mg capsules every 8 Capsules hours as needed for cough. Debrox As directed on QS H61.23 Vasquez Crowder NP 04/21/2019 6.5% Solution package Aquaphor Apply to affected 5040gm L84 Vasquez Crowder NP 04/21/2019 Ointment areas twice daily E10.9 Hydroxyzine HCL 1-2 tablets by mouth 60tabs F41.9 Vasquez Crowder NP 2018 every 6 hours as 25mg Tablets needed for anxiety Omeprazole Take 1 Capsule By 30caps K21.9 Vasquez Crowder NP 08/12/2018 20mg Mouth Every Day Capsules DR Baclofen take 1/2 tab every 8 30tabs S16.1xxA Vasquez Crowder NP 08/12/2018 10mg hours as needed for Tablets muscle spasm [place] MMT 943 change every other 30units E10.9 Vasquez Crowder NP 2017 Infusion Set day [employer] [place] change every other 30units E10.9 Vasquez Crowder NP 2017 MMT 332 day Loratadine Take 1 Tablet By 30tabs J30.9 Vasquez Crowder NP 05/19/2017 10mg Mouth Every Day Tablets Carpal Tunnel Wrist Wear splint on right 1units G56.01 Vasquez Crowder NP Stabilizer/Large/X- hand while sleeping. Large Misc Ibuprofen take one tablet by 21tabs G56.01 Vasquez Crowder NP 12/25/2016 600mg mouth three times a Tablets day as needed with food Onetouch Ultra Blue test up to four 150units Stephani Kaur, 10/26/2015 times a day or as M.D. Strips directed dx: type 1 diabetes on insulin pump Lancets 28G 8-10 times daily 100units E10.9 Vasquez Crowder NP 10/11/2015 28G Misc Glucose 3 chewtabs as neede 30units E10.9 Vasquez Crowder NP 10/11/2015 4gm hypoglycemia Chewtabs Glucagon Emergency Im as needed: 1units E10.9 Vasquez Crowder NP 10/11/2015 hypoglycemia 1mg Kit Ventolin HFA 2 puffs by mouth Unknown four times a day as 108(90Base) mcg/Act needed Aerosol Symbicort 2 puff twice a day Unknown 80-4.5mcg/Act Aerosol Insulin Pump Ps7320 E10.9 Unknown [id number] Kit Humalog use in insulin pump 30ml Stephani Vincent, 100Unit/ML up to 150 units M.D. Solution daily Norgestim-Mike Mcclellan MD Estrad Triphasic 0.18/0.215/0.25 mg-25 mcg Tablets Medications Administered in Office Medication SIG Qnty Indications Ordering Provider Date PPD Injection Unknown 07/10/2015 Immunizations CPT Code Status Date Vaccine Lot # [id number] Given 08/12/2018 Influenza Virus Vaccine, Quadrivalent, Split, [id number] Preservative Free Vital Signs Date Vital Result Comment 04/21/2019 3:49pm Height 59 inches 4'11" Weight 215.00 lb Heart Rate 78 /min BP Systolic 131 mmHg BP Diastolic 81 mmHg Body Temperature 98.1 F O2 % BldC Oximetry 96 % BMI (Body Mass Index) 43.4 kg/m2 11/23/2018 3:30pm Height 59 inches 4'11" Weight 221.50 lb Heart Rate 84 /min BP Systolic 108 mmHg BP Diastolic 67 mmHg Body Temperature 98.2 F O2 % BldC Oximetry 97 % BMI (Body Mass Index) 44.7 kg/m2 Results Test Date Facility Test Result H/L Range Note Poc Urinalysis 02/01/2019 [facility] Poc Glucose, Negative Negative [address] [place] [address] [phone] Poc Bilirubin, Urine Negative Negative Poc Ketone, Urine Negative Negative Poc Specific [place], Urine 1.020 Normal 1.010-1.030 Poc Blood, Urine Trace-intact Abnormal Negative Poc pH, Urine 8.5 Normal 5-9 Poc Protein, Urine Negative Negative Poc Urobilinogen, Urine 0.2 Negative Poc Nitrite, Urine Negative Negative Poc Leukocytes, Urine Negative Negative Poc Color, Urine Yellow Poc Clarity, Urine Clear 1 Laboratory test 02/01/2019 [facility] Point of Care 92 mg/dL Normal 70-100 [address] [place] [address] [phone] Automated Equipment Engineer Technician: [id number] Automated Equipment Engineer Technician: [id number] Procedures Date Code Description Status 01/22/2018 [id number] Diabetic Retinal Eye Exam Completed Medical Devices Description No Information Available Encounters Type Date Location Provider Dx Diagnosis Office Visit 11/23/2018 [facility] Vasquez Crowder NP Z13.220 Encounter for 3:40p Medicine - [facility] screening for lipoid disorders E10.9 Type 1 diabetes mellitus without complications F41.9 Anxiety disorder, unspecified Z68.41 Body mass index (BMI) 40.0-44.9, adult Assessments Date Code Description Provider 04/21/2019 J06.9 Acute upper respiratory infection, unspecified Vasquezriki Crowder, GRISEL 04/21/2019 L84 Corns and callosities Vasquez Crowder, GRISEL 04/21/2019 L60.0 Ingrowing nail Vasquez Crowder, GRISEL 04/21/2019 H61.23 Impacted cerumen, bilateral Vasquez Crowder, GRISEL 11/23/2018 Z13.220 Encounter for screening for lipoid disorders Vasquez Crowder NP 11/23/2018 E10.9 Type 1 diabetes mellitus without complications Vasquez Crowder, GRISEL 11/23/2018 F41.9 Anxiety disorder, unspecified Vasquez Crowder, GRISEL 11/23/2018 Z68.41 Body mass index (BMI) 40.0-44.9, adult Vasquez Crowder NP Plan of Treatment 04/21/2019 - Vasquez Crowder NPJ06.9 Acute upper respiratory infection, unspecifiedNew Medication:Benzonatate 100 mg - take one or two capsules every 8 hours as needed for cough.Comments:Your symptoms are consistent with a viral upper respiratory infection. I recommend treating symptomatically. Drink plenty of fluids and try to rest as much as possible. If your symptoms worsen or do not improve please call the office.L84 Corns and callositiesNew Medication: Aquaphor - Apply to affected areas twice dailyReferral:Chase Narayanan DPM , YujcakoqoaB74.0 Ingrowing nailReferral:Chase Narayanan DPM, OyezmrgsaqK28.23 Impacted cerumen, bilateralNew Medication:Debrox 6.5 % - As directed on packageComments:You can try over the counter Debrox drop to soften the wax in your ears and then try to flush them out with warm water. If not effective I can try to flush them out. Functional Status Description No Information Available Mental Status Description No Information Available Referrals Refer to Reason for Referral Status Appt Date Chase Narayanan DPM afternoon appt Created [address] [place] [address] [phone] [facility] Received Partial [address] [place] [phone]
[2019-05-31 11:06] VITALS: BP 157/83
--- NOTE | 2019-05-31 11:38 | UC ---
Throat Pain/Nasal El HPI - HPI Summary HPI Summary: 23 year old female with PMH + for DM I, asthma presents with 6 days of congestion, non-productive cough, throat pain, increased ear pain b/l, tactile fever, chills. SYmptoms not improving. No recent abx use. uses DM pump, normally only astham med albuterol with exercises, sickness. - History of Current Complaint Chief Complaint: UCRespiratory Stated Complaint: CHEST CONGESTION Time Seen by Provider: 05/31/19 11:05 Hx Obtained From: Patient Hx Last Menstrual Period: 05/20/19 ?: No Onset/Duration: Sudden Onset, Lasting Days Severity: Moderate Pain Intensity: 7 Pain Scale Used: 0-10 Numeric Cough: Nonproductive Associated Signs & Symptoms: Positive: Dysphagia, Wheezing, Sinus Discomfort, Fever Related History: Smoking - vaping - Allergies/Home Medications Allergies/Adverse Reactions: Allergies Allergy/AdvReac Type Severity Reaction Status Date / Time vancomycin Allergy Hives Verified 05/31/19 11:06 wheat Allergy Diarrhea Verified 05/31/19 11:06 Home Medications: Home Medications Ibuprofen [Ibu] 600 mg PO Q6HR PRN 05/31/19 [History Confirmed 05/31/19] PMH/Surg Hx/FS Hx/Imm Hx Previously Healthy: Yes Endocrine History: Diabetes - DM I Respiratory History: Asthma Other History Of: Negative For: Anticoagulant Therapy - Surgical History Surgical History: Yes Surgery Procedure, Year, and Place: appy 2015, cyst removed from chest - Family History Known Family History: Positive: None, Diabetes - sister and grandmother Family History: no cardio vascular issues reported in family lineage - Social History Alcohol Use: None Substance Use Type: None Smoking Status (MU): Never Smoked Tobacco Type: eCigarettes - Immunization History Most Recent Influenza Vaccination: 2016 Most Recent Tetanus Shot: Unknown Most Recent Pneumonia Vaccination: Never Review of Systems All Other Systems Reviewed And Are Negative: Yes Constitutional: Positive: Fever, Fatigue Eyes: Positive: Negative ENT: Positive: Sore Throat, Ear Ache, Nasal Discharge, Sinus Congestion, Sinus Pain/Tenderness Respiratory: Positive: Shortness Of Breath, Cough Is Patient Immunocompromised?: No Physical Exam Triage Information Reviewed: Yes Appearance: No Pain Distress, Well-Nourished, Ill-Appearing - mild Vital Signs: Initial Vital Signs Temp 98.7 F 05/31/19 11:00 Pulse 68 05/31/19 11:00 Resp 16 05/31/19 11:00 BP 157/83 05/31/19 11:00 Pulse Ox 99 05/31/19 11:00 Vital Signs Reviewed: Yes Eyes: Positive: Conjunctiva Clear ENT: Positive: Pharynx normal - no exudates, no erythema, Sinus tenderness - b/ l frontal/ max., Uvula midline, Other - cerumen impaction b/l, irrigation performed, ear canals clear afterwards.. Negative: Nasal drainage Dental Exam: Normal Neck: Positive: Supple, No Lymphadenopathy, Tenderness @ - b/l submand Respiratory: Positive: Chest non-tender, Lungs clear, Normal breath sounds, No respiratory distress, No accessory muscle use. Negative: Respiratory distress, Crackles, Rhonchi, Stridor, Wheezing Cardiovascular: Positive: RRR, No Murmur Skin Exam: Normal Throat Pain/Nasal Course/Dx - Course Course Of Treatment: Viral Upper respiratory illness - Over the counter medications such as tylenol/ motrin as needed for pain, chills - Ear drops as directed x 5 days - Return with increased shortness of breath, neck stiffness, worsening symptoms. - Increased rest, increase fluid intake. - albuterol inhaler as needed for shortness of breath - Differential Dx/Diagnosis Differential Diagnosis/HQI/PQRI: Pharyngitis, URI Provider Diagnosis: URI (upper respiratory infection) Discharge ED - Sign-Out/Discharge Documenting (check all that apply): Patient Departure All imaging exams completed and their final reports reviewed: No Studies - Discharge Plan Condition: Good Disposition: HOME Prescriptions: Albuterol HFA INHALER* [Ventolin HFA Inhaler*] 1 - 2 puff INH Q4H PRN #1 mdi PRN Reason: Shortness Of Breath Neomycin/Polymyxin B/Hydrocort [Ewtwkpxi-Tsdhyxdoy-Vz Ear Susp] 2 drop OT QID # 1 bottle Patient Education Materials: Viral Syndrome (ED) Referrals: Vasquez Crowder WINDOW SHADE RING COVERER [Primary Care Provider] - Additional Instructions: Viral Upper respiratory illness - Over the counter medications such as tylenol/ motrin as needed for pain, chills - Ear drops as directed x 5 days - Return with increased shortness of breath, neck stiffness, worsening symptoms. - Increased rest, increase fluid intake. - albuterol inhaler as needed for shortness of breath - Billing Disposition and Condition Condition: GOOD Disposition: Home
== END 2019-05-31 11:50 | disposition home or self-care (01) ==
LOC: UCEAST 10:53
DX: J06.9 Acute upper respiratory infection, unspecified (principal); E10.9 Type 1 diabetes mellitus without complications; J45.909 Unspecified asthma, uncomplicated; Z79.4 Long term (current) use of insulin
CPT/HCPCS: 99213; G0463

== ENCOUNTER 2019-06-05 13:15 | Emergency (ER) | payer OTHER ==
[2019-06-05 13:48] VITALS: BP 124/77
--- NOTE | 2019-06-05 14:33 | UC ---
Complaint Female HPI - HPI Summary HPI Summary: 23 yo female presents with urinary symptoms. She tells me that for the last 3 days she has had urinary frequency and burning. Today developed some aches in her b/l flanks. She has had UTIs in the past and this feels the same. She also mentions that for the last 3-4 days she has been having vaginal white discharge and odor. Denies fever, chills, abdominal pain, n/v, dysuria, hematuria, vaginal bleeding. - History Of Current Complaint Chief Complaint: UCGU Stated Complaint: BURNING URINATION Time Seen by Provider: 06/05/19 14:33 Hx Obtained From: Patient Hx Last Menstrual Period: 05/20/19 Onset/Duration: Gradual Onset Severity Initially: Severe Severity Currently: Severe Pain Intensity: 8 Pain Scale Used: 0-10 Numeric - Allergies/Home Medications Allergies/Adverse Reactions: Allergies Allergy/AdvReac Type Severity Reaction Status Date / Time vancomycin Allergy Hives Verified 06/05/19 13:48 wheat Allergy Diarrhea Verified 06/05/19 13:48 Home Medications: Home Medications Drospirenone/Estradiol [Angeliq] 1 tab PO DAILY WITH MEAL 06/05/19 [History Confirmed 06/05/19] PMH/Surg Hx/FS Hx/Imm Hx Endocrine History: Diabetes Respiratory History: Asthma Other History Of: Negative For: Anticoagulant Therapy - Surgical History Surgical History: Yes Surgery Procedure, Year, and Place: appy 2016, cyst removed from chest - Family History Known Family History: Positive: Diabetes - sister and grandmother Family History: no cardio vascular issues reported in family lineage - Social History Lives: With Family Alcohol Use: None Substance Use Type: Marijuana Smoking Status (MU): Former Smoker Type: eCigarettes - Immunization History Most Recent Influenza Vaccination: 2016 Most Recent Tetanus Shot: Unknown Most Recent Pneumonia Vaccination: Never Review of Systems All Other Systems Reviewed And Are Negative: No Constitutional: Positive: Negative Skin: Positive: Negative Respiratory: Positive: Negative Cardiovascular: Positive: Negative Gastrointestinal: Positive: Negative Genitourinary: Positive: Dysuria, Vaginal/Penile Discharge Motor: Positive: Negative Neurological: Positive: Negative Psychological: Positive: Negative Physical Exam - Summary Physical Exam Summary: GENERAL: NAD. WDWN. No pain distress. SKIN: No rashes, sores, lesions, or open wounds. NECK: Supple. Nontender. No lymphadenopathy. CHEST: CTAB. No r/r/w. No accessory muscle use. Breathing comfortably and in no distress. CV: RRR. Without m/r/g. Pulses intact. Cap refill <2seconds ABDOMEN: Soft. NTTP. No CVA tenderness. Bowel sounds present NEURO: Alert. PSYCH: Age appropriate behavior. Triage Information Reviewed: Yes Vital Signs: Initial Vital Signs Temp 98.2 F 06/05/19 13:45 Pulse 81 06/05/19 13:45 Resp 18 06/05/19 13:45 BP 124/77 06/05/19 13:45 Pulse Ox 98 06/05/19 13:45 Laboratory Tests 06/05/19 14:18 POC Urine Color Yellow POC Urine Clarity Cloudy POC Urine pH 6.0 POC Ur Specif [place] 1.015 POC Urine Protein Negative POC Ur Glucose (UA) Negative POC Urine Ketones Negative POC Urine Blood Negative POC Urine Nitrite Negative POC Urine Bilirubin Negative POC Urine Urobilinogen 0.2 POC U Leukocyte Esteras Trace A Vital Signs Reviewed: Yes Pelvic Exam: Positive: No Cerv. Motion Tender, Discharge - Thick white, Other - Exam assisted by Elizabeth MIRANDA. Negative: Active Bleeding, Blood, Lesions, Ulcers Complaint Female Dx - Course Course Of Treatment: UA with trace leuks - will treat with keflex for UTI. Pelvic exam appears consistent with yeast infection - culture obtained and will be sent. Will treat with diflucan. - Differential Dx/Diagnosis Provider Diagnosis: UTI (urinary tract infection), Vaginal yeast infection Discharge ED - Sign-Out/Discharge Documenting (check all that apply): Patient Departure All imaging exams completed and their final reports reviewed: No Studies - Discharge Plan Condition: Stable Disposition: HOME Prescriptions: Cephalexin CAP* [Keflex CAP*] 500 mg PO BID #10 cap Fluconazole 150 MG TAB* [Diflucan 150 MG TAB*] 150 mg PO ONCE #2 tablet Patient Education Materials: Urinary Tract Infection in Women (DC), Yeast Infection (ED) Referrals: Vasquez Crowder NP [Primary Care Provider] - Additional Instructions: If you develop a fever, shortness of breath, chest pain, new or worsening symptoms - please call your PCP or go to the ED immediately. - Billing Disposition and Condition Condition: STABLE Disposition: Home
--- NOTE | 2019-06-06 16:01 | UC ---
- Progress Note Progress Note: please notify pt she has BV flagyl 500 bid x 7 days eRxed Course/Dx - Diagnoses Provider Diagnoses: UTI (urinary tract infection), Vaginal yeast infection Discharge ED - Sign-Out/Discharge Documenting (check all that apply): Post-Discharge Follow Up All imaging exams completed and their final reports reviewed: No Studies - Discharge Plan Condition: Stable Disposition: HOME Prescriptions: Cephalexin CAP* [Keflex CAP*] 500 mg PO BID #10 cap Fluconazole 150 MG TAB* [Diflucan 150 MG TAB*] 150 mg PO ONCE #2 tablet Patient Education Materials: Urinary Tract Infection in Women (DC), Yeast Infection (ED) Referrals: Vasquez Crowder FIELD OPERATIONS MANAGER [Primary Care Provider] - Additional Instructions: If you develop a fever, shortness of breath, chest pain, new or worsening symptoms - please call your PCP or go to the ED immediately. - Billing Disposition and Condition Condition: STABLE Disposition: Home
== END 2019-06-05 15:25 | disposition home or self-care (01) ==
LOC: UCEAST 13:15
DX: N39.0 Urinary tract infection, site not specified (principal); B37.9 Candidiasis, unspecified; E11.9 Type 2 diabetes mellitus without complications; J45.909 Unspecified asthma, uncomplicated; Z87.891 Personal history of nicotine dependence
CPT/HCPCS: 81003; 87086; 87480; 87510; 99212; G0463

== ENCOUNTER 2019-08-03 15:43 | Emergency (ER) | payer OTHER ==
[2019-08-03 16:02] VITALS: BP 127/71
--- NOTE | 2019-08-03 16:48 | UC ---
FLU HPI - HPI Summary HPI Summary: Patient is a 23-year-old female with PMH significant for asthma presenting with chest congestion, cough, sore throat, nasal congestion, chills, bodyaches 4 days. Patient also notes shortness of breath and wheezing. States her inhaler has not helped. He notes subjective fevers at home. Notes nausea but denies vomiting. Also notes looser stools for the past 2 days. Notes decreased appetite. Patient is a nonsmoker. - History of Current Complaint Chief Complaint: UCRespiratory Stated Complaint: URI Hx Obtained From: Patient Hx Last Menstrual Period: 06/25/19 Onset/Duration: Gradual Onset, Lasting Days Severity Initially: Moderate Pain Intensity: 7 Pain Scale Used: 0-10 Numeric - Allergy/Home Medications Allergies/Adverse Reactions: Allergies Allergy/AdvReac Type Severity Reaction Status Date / Time vancomycin Allergy Hives Verified 08/03/19 16:02 wheat Allergy Diarrhea Verified 08/03/19 16:02 Home Medications: Home Medications Naproxen Sodium [Naproxen 220 mg] 220 mg PO ONCE PRN 08/03/19 [History Confirmed 08/03/19] PMH/Surg Hx/FS Hx/Imm Hx Respiratory History: Asthma Other History Of: Negative For: Anticoagulant Therapy - Surgical History Surgical History: Yes Surgery Procedure, Year, and Place: appy 2016, cyst removed from chest - Family History Known Family History: Positive: None, Diabetes - sister and grandmother Family History: no cardio vascular issues reported in family lineage - Social History Lives: With Family Alcohol Use: None Substance Use Type: Marijuana Smoking Status (MU): Former Smoker Type: eCigarettes - Immunization History Most Recent Influenza Vaccination: 2016 Most Recent Tetanus Shot: Unknown Most Recent Pneumonia Vaccination: Never Review of Systems All Other Systems Reviewed And Are Negative: Yes Constitutional: Positive: Fever, Chills, Fatigue ENT: Positive: Sore Throat, Nasal Discharge, Sinus Congestion. Negative: Ear Ache Respiratory: Positive: Shortness Of Breath, Cough, Other - wheezing Cardiovascular: Positive: Negative Gastrointestinal: Positive: Diarrhea, Nausea. Negative: Vomiting Genitourinary: Positive: Negative Musculoskeletal: Positive: Myalgia Neurological: Positive: Headache Physical Exam Triage Information Reviewed: Yes Appearance: No Pain Distress, Well-Nourished, Obese Vital Signs: Initial Vital Signs Temp 98.4 F 08/03/19 15:58 Pulse 95 08/03/19 15:58 Resp 16 08/03/19 15:58 BP 127/71 08/03/19 15:58 Pulse Ox 97 08/03/19 15:58 Lab Results 08/03/19 Range/Units 17:56 Group A Strep Rapid Negative (Negative) Vital Signs Reviewed: Yes Eyes: Positive: Conjunctiva Clear ENT: Positive: Hearing grossly normal, Pharyngeal erythema, Nasal congestion, TMs normal, Tonsillar swelling. Negative: Tonsillar exudate Neck exam: Normal Neck: Positive: Supple, Nontender, No Lymphadenopathy Respiratory: Positive: No respiratory distress, No accessory muscle use, Wheezing - diffuse b/l wheezing. Negative: Crackles, Rhonchi, Stridor Cardiovascular Exam: Normal Cardiovascular: Positive: RRR Abdominal Exam: Normal Abdomen Description: Positive: Nontender, Soft. Negative: CVA Tenderness (R), CVA Tenderness (L) Bowel Sounds: Positive: Present Neurological: Positive: Alert Psychological: Positive: Age Appropriate Behavior Skin Exam: Normal Diagnostics - Radiology chest Radiology Interpretation Completed By: Radiologist Summary of Radiographic Findings: IMPRESSION: NO EVIDENCE FOR ACTIVE CARDIOPULMONARY DISEASE. Flu Course/Dx - Course Course Of Treatment: Discussed negative chest x-ray patient, negative rapid strep test, and likely viral etiology of symptoms. Educated on upper respiratory infection and acute bronchitis. Instructed to continue symptomatic treatment including use of inhaler as needed. Instructed to follow-up if symptoms persist or go to ED if she expands his new or worsening symptoms. Patient voiced understanding and agreed with treatment plan. - Differential Dx/Diagnosis Provider Diagnosis: Upper respiratory infection, Acute bronchitis Discharge ED - Sign-Out/Discharge Documenting (check all that apply): Patient Departure All imaging exams completed and their final reports reviewed: Yes - Discharge Plan Condition: Stable Disposition: HOME Patient Education Materials: Acute Bronchitis (ED), Upper Respiratory Infection (ED) Forms: *Work Release Referrals: Vasquez Crowder, BENZOL STILL OPERATOR [Primary Care Provider] - If Needed Additional Instructions: As discussed, your chest xray was read as normal. Your symptoms are most likely caused by a virus. You may continue take mucinex to help reduce your mucus production. Continue use of your inhaler as directed for your shortness of breath. You may continue to take over the counter cough and cold medications for your cold symptoms. Get plenty of rest and fluids. Follow up with your primary care doctor if your symptoms do not resolve within 7 days. - Billing Disposition and Condition Condition: STABLE Disposition: Home
== END 2019-08-03 18:20 | disposition home or self-care (01) ==
LOC: UCEAST 15:43
DX: J06.9 Acute upper respiratory infection, unspecified (principal); J20.9 Acute bronchitis, unspecified; J45.909 Unspecified asthma, uncomplicated; Z88.1 Allergy status to other antibiotic agents; Z91.018 Allergy to other foods; Z87.891 Personal history of nicotine dependence
CPT/HCPCS: 71046; 87651; 99211; G0463

== ENCOUNTER 2019-08-05 14:01 | Emergency (ER) | payer OTHER ==
[2019-08-05 14:19] VITALS: BP 157/63
[2019-08-05] MEDS ORDERED: Albuterol/Ipratropium NEB.SOL* Albuterol 2.5 MG/Ipratropium 0.5 MG 3 ML INH ONE (14:30)
--- NOTE | 2019-08-05 14:35 | UC ---
Respiratory Complaint HPI - HPI Summary HPI Summary: uri sx for 2 days seen at advised likely viral but is not getting any better- --FSBS this am >200 no fevers chest feels tight and wheezy-- - History of Current Complaint Chief Complaint: UCRespiratory Stated Complaint: CONGESTION Time Seen by Provider: 08/05/19 14:23 Hx Obtained From: Patient Hx Last Menstrual Period: 07/26/19 ?: No Onset/Duration: Sudden Onset, Lasting Days - 3, Still Present Timing: Constant Pain Intensity: 8 Pain Scale Used: 0-10 Numeric Character: Cough: Productive Aggravating Factors: Deep Breaths, Recumbent Position Alleviating Factors: Nothing Associated Signs And Symptoms: Positive: Pleuritic Chest Pain, Wheezing - Allergies/Home Medications Allergies/Adverse Reactions: Allergies Allergy/AdvReac Type Severity Reaction Status Date / Time vancomycin Allergy Hives Verified 08/05/19 14:19 wheat Allergy Diarrhea Verified 08/05/19 14:19 PMH/Surg Hx/FS Hx/Imm Hx Previously Healthy: No Endocrine History: Diabetes Respiratory History: Asthma Other History Of: Negative For: Anticoagulant Therapy - Surgical History Surgical History: Yes Surgery Procedure, Year, and Place: appy 2015, cyst removed from chest - Family History Known Family History: Positive: None, Diabetes - sister and grandmother Family History: no cardio vascular issues reported in family lineage - Social History Occupation: Employed Full-time Lives: With Family Alcohol Use: None Substance Use Type: Marijuana Smoking Status (MU): Former Smoker Type: eCigarettes - Immunization History Most Recent Influenza Vaccination: 2016 Most Recent Tetanus Shot: Unknown Most Recent Pneumonia Vaccination: Never Review of Systems All Other Systems Reviewed And Are Negative: Yes Constitutional: Positive: Negative Skin: Positive: Negative Eyes: Positive: Negative ENT: Positive: Negative Respiratory: Positive: Cough Cardiovascular: Positive: Chest Pain - pleuretic bronchial pain Gastrointestinal: Positive: Negative Genitourinary: Positive: Negative Motor: Positive: Negative Neurovascular: Positive: Negative Musculoskeletal: Positive: Negative Neurological: Positive: Negative Psychological: Positive: Negative Is Patient Immunocompromised?: No Physical Exam Triage Information Reviewed: Yes Appearance: No Pain Distress, Ill-Appearing - mild, Obese Vital Signs: Initial Vital Signs Temp 98.4 F 08/05/19 14:14 Pulse 93 08/05/19 14:14 Resp 20 08/05/19 14:14 BP 157/63 11/23/19 14:14 Pulse Ox 95 08/05/19 14:14 Vital Signs Reviewed: Yes Eye Exam: Normal Eyes: Positive: Conjunctiva Clear ENT Exam: Normal ENT: Positive: Normal ENT inspection, Hearing grossly normal, Pharynx normal, TMs normal, Uvula midline. Negative: Nasal congestion, Trismus, Muffled voice, Hoarse voice, Dental tenderness, Sinus tenderness Dental Exam: Normal Neck exam: Normal Neck: Positive: Supple, Nontender, No Lymphadenopathy Respiratory Exam: Other Respiratory: Positive: Chest non-tender, No accessory muscle use, Wheezing Cardiovascular Exam: Normal Cardiovascular: Positive: RRR, No Murmur, Pulses Normal, Brisk Capillary Refill Musculoskeletal Exam: Normal Musculoskeletal: Positive: Strength Intact, ROM Intact, No Edema Neurological Exam: Normal Neurological: Positive: Alert, Muscle Tone Normal Skin Exam: Normal Re-Evaluation - Re-Evaluation First Eval Change: Unchanged - after first neb not much improvement in airmovement patient rpeots chest is not quite as tight Second Eval Change: Improved - symptoms have essentially completely resoved sat 95-97% patient feels much better Respiratory Course/Dx - Course Course Of Treatment: Neb q4 hours or mdi with spacer, mucinex, avoid cannabis,vape or nicotine follow with pcp Wednesday or to Ed If symptoms worsen - Differential Dx/Diagnosis Provider Diagnosis: Bronchitis with bronchospasm, Vapes non-nicotine containing substance, Hx of cannabis abuse Discharge ED - Sign-Out/Discharge Documenting (check all that apply): Patient Departure All imaging exams completed and their final reports reviewed: No Studies - Discharge Plan Condition: Stable Disposition: HOME Prescriptions: Albuterol 2.5MG/3ML (0.083%)* [Ventolin 2.5 MG/3 ML NEB.JORGE*] 2.5 mg INH Q4H PRN #90 each PRN Reason: chest congestion tightness Azithromycin TAB* [Zithromax TAB (Z-HANK) 250 mg #6 tabs] 2 tab PO .TODAY, THEN 1 DAILY #1 hank Patient Education Materials: Acute Bronchitis (ED), How to Use a Nebulizer (ED) , Bronchospasm (ED), How to Use a Metered-Dose Inhaler and a Spacer (ED) Forms: *Work Release Referrals: Vasquez Crowder NP [Primary Care Provider] - 2 Days - Billing Disposition and Condition Condition: STABLE Disposition: Home - Attestation Statements Provider Attestation: I was available for consult. This patient was seen by the TATI. The patient was not presented to , seen by or examined by -Vania Sellers MD
[2019-08-05] MEDS ORDERED: Albuterol 2.5 MG/3 ML NEB.SOL* (0.083%) INH ONE (15:25)
== END 2019-08-05 16:15 | disposition home or self-care (01) ==
LOC: UCEAST 14:01
DX: J45.909 Unspecified asthma, uncomplicated (principal); E66.9 Obesity, unspecified; E11.9 Type 2 diabetes mellitus without complications; F12.11 Cannabis abuse, in remission; F19.20 Other psychoactive substance dependence, uncomplicated; Z88.1 Allergy status to other antibiotic agents; Z91.018 Allergy to other foods; Z87.891 Personal history of nicotine dependence
CPT/HCPCS: 99213; A9270-GY; G0463

== ENCOUNTER 2019-09-18 13:14 | Emergency (ER) | payer OTHER ==
--- OUTSIDE RECORDS SUMMARY | 2019-09-18 13:25 | XMS REPORT | Continuity of Care Document ---
:1995 External Reference #:[id number] Author Name Yvette Keenan N.P. (transmitted by agent of provider Jaqui Mckeon) Address [address], [place] [address] Care Team Providers Name Role Phone Siena Bowen MD - Internal Care Team Information Slitter [employer]inder [phone] Medicine [facility] - Care Team Information Slitter [employer] Rewinder [phone] Endocrinology, Diabetes & Metabolism Problems Active Problems [...] Use Denies Drug Use Smoking Status Reviewed: 08/09/19 Patient has never smoked Exercise Type/Frequency Exercises rarely Allergies, Adverse Reactions, Alerts Active Allergies Reaction Severity Comments Date Vancomycin Urticaria 04/05/2017 Inactive Allergies NKDA 10/11/2015 Medications Active Medications SIG Qnty Indications Ordering Provider Date Prednisone 3 tabs daily for 18tabs J45.41 Yvette Keenan, 08/09/2019 20mg 5 days, then 2 N.P. Tablets tablets for a day, then 1 tablet for a day, then stop Fluticasone 2 sprays each 16gm J45.41 Yvette Keenan, 08/09/2019 Propionate nostril daily as N.P. 50mcg/Act needed Suspension Fluconazole one by mouth 3tabs B37.3 Yvette Keenan, 08/09/2019 150mg every 3 days for N.P. Tablets 3 doses Ear Drops Earwax Aid Use as Directed 15units Vasquez Crowder NP 05/22/2019 On Package 6.5% Solution Debrox As directed on QS H61.23 Vasquez [...] hours as needed for Tablets muscle spasm Moises MMT 943 change every other 30units E10.9 Vasquez Crowder NP 2017 Infusion Set day [employer] [place] change every other 30units E10.9 Vasquez Crowder [...] Glucose 3 chewtabs as neede 30units E10.9 Vaqsuez Crowder NP 10/11/2015 4gm hypoglycemia Chewtabs Glucagon Emergency Im as needed: 1units E10.9 Vasquez Crowder NP 10/11/2015 hypoglycemia 1mg Kit Ventolin HFA 2 puffs by mouth Unknown four times a day as 108(90Base) mcg/Act needed Aerosol Symbicort 2 puff twice a day Unknown 80-4.5mcg/Act Aerosol Insulin Pump [id number] E10.9 Unknown [id number] Kit Humalog use in insulin pump 30ml Stephani Cotton, 100Unit/ML up to 150 units M.D. Solution daily Norgestim-Mike Mcclellan MD Estrad Triphasic 0.18/0.215/0.25 mg-25 mcg Tablets History Medications Benzonatate take one or two 30caps J06.9 Vasquez Crowder NP 04/21/2019 - 100mg capsules every 8 04/28/2019 Capsules hours as needed for cough. Medications Administered in Office Medication SIG Qnty Indications Ordering Provider Date PPD Injection Unknown 07/10/2015 Immunizations CPT Code Status Date Vaccine Lot # [id number] Given 08/12/2018 Influenza Virus Vaccine, Quadrivalent, Split, [id number] Preservative Free Vital Signs Date Vital Result Comment 08/09/2019 8:53am Height 59 inches 4'11" Weight 206.38 lb Heart Rate 81 /min BP Systolic Sitting 130 mmHg BP Diastolic Sitting 76 mmHg Body Temperature 97.7 F O2 % BldC Oximetry 99 % BMI (Body Mass Index) 41.7 kg/m2 04/21/2019 3:49pm Height 59 inches 4'11" Weight 215.00 lb Heart Rate 78 /min BP Systolic 131 mmHg BP Diastolic 81 mmHg Body Temperature 98.1 F O2 % BldC Oximetry 96 % BMI (Body Mass Index) 43.4 kg/m2 Results Test Acquired Facility Test Result H/L Range Note Date Laboratory test 08/03/2019 [facility] Rapid Strep Negative Negative [address] [place] [address] [phone] Laboratory test 06/05/2019 [facility] Gardnerella/Y SEE RESULT 2, [address]: [place] [address] Dna [phone] Urine Culture And 06/05/2019 [facility] Urine Culture SEE RESULT 4, [address] [place] [address] [phone] Poc Urinalysis 06/05/2019 [facility] Poc Glucose, Negative Negative [address] [place] [address] [phone] Poc Bilirubin, Urine Negative Negative Poc Ketone, Urine Negative Negative Poc Specific Edon, Urine 1.015 Normal 1.010-1.030 Poc Blood, Urine Negative Negative Poc pH, Urine 6.0 Normal 5-9 Poc Protein, Urine Negative Negative Poc Urobilinogen, Urine 0.2 Negative Poc Nitrite, Urine Negative Negative Poc Leukocytes, Urine Trace Abnormal Negative Poc Color, Urine Yellow Poc Clarity, Urine Cloudy 6 1 Steam Cleaner: [id number] Suboptimal collection technique may reduce sensitivity of test. Refer to the [facility] Test Catalog for collection information: [email or web address] As with all diagnostic procedures, the laboratory results obtained should be used in conjunction with other clinical information available to the physician, including confirmation by another method, as applicable. 2 [id number] Would you like to order Trichomonas Vaginalis RNA testing? N 3 SEE RESULT BELOW Name: NICOLE MORRIS : [address]: Bill Sweeney MD Acct: [id number] Unit: [id number] AGE: 23 Location: [facility] Re06/05/19 SEX: F Status: DEP ER SPEC: [id number] KERRY: 06/05/19-[address] [facility] [address]: Zev MERAZ REQ: [id number] RECD: 06/05/19261 STATUS: HARDEEP BERNARDO DR: Vasquez Sweeney MD _ SOURCE: VAGINAL SPDESC: ORDERED: Haydee,Yeast DNA COMMENTS: [id number] Would you like to order Trichomonas Vaginalis RNA testing? N QUERIES: Would you like to order Trichomonas Vaginalis testing? No Procedure Result Reported Site Gardnerella/Yeast: Vaginal DNA Final 06/06/19- 1132 ML Organism 1 POSITIVE GARDNERELLA Organism 2 Negative Frannie The presence of G. vaginalis, although suggestive, is not diagnostic for bacterial vaginosis. Results should be interpreted in conjuction with other clinical and laboratory data available. Women with vaginal discharge should be evaluated for risk factors of cervicitis and pelvic inflammatory disease, toxic shock syndrome (S.aureus), and if present, evaluated for organisms not included in this assay such as N. gonorrhoeae, C. trachomatis, Mobiluncus, Mycoplasma and/or Prevotella. Mixed infections may occur. The performance of this test on patient specimens collected during or immediately after antimicrobial therapy is unknown. The presence or absence of Frannie species, or G. vaginalis cannot be used as a test for therapeutic success or failure. * ML - Main Lab . END OF REPORT DEPARTMENT OF PATHOLOGY, [address] [place] [address] Jonathan Allen M.D. Director [facility] # [id number] 5 SEE RESULT BELOW Name: NICOLE MORRIS : [address]: Bill Sweeney MD Acct: [id number] Unit: [id number] AGE: 23 Location: [facility] Re06/05/19 SEX: F Status: DEP ER SPEC: [id number] KERRY: 06/05/19-[address] [facility] [address]: Evita Armstrong MD REQ: [id number] RECD: 06/05/19 STATUS: HARDEEP BERNARDO DR: [facility] Vasquez Crowder REPRODUCTIVE HEALTHCARE ASSISTANT _ SOURCE: URINE SPDESC: ORDERED: Urine Culture COMMENTS: [id number] QUERIES: Urine Source: Random Procedure Result Reported Site Urine Culture Final 06/06/19- 1607 ML No growth of clinically significant organisms * ML - Main Lab . END OF REPORT DEPARTMENT OF PATHOLOGY, [address] [place] [address] Jonathan Allen M.D. Director [facility] # [id number] 6 Steam Cleaner: [id number] Procedures Date Code Description Status 01/22/2018 [id number] Diabetic Retinal Eye Exam Completed Medical Devices Description No Information Available Encounters Type Date Location Provider Dx Diagnosis Office Visit 04/21/2019 [facility] Internal Vasquez Crowder NP J06.9 Acute upper 3:40p Medicine - Ccmob respiratory infection, unspecified L84 Corns and callosities L60.0 Ingrowing nail H61.23 Impacted cerumen, bilateral Assessments Date Code Description Provider 08/09/2019 J45.41 Moderate persistent asthma with (acute) Yvette Keenan, N.P. exacerbation 08/09/2019 B37.3 Candidiasis of vulva and vagina Yvette Keenan, N.PYobani 04/21/2019 J06.9 Acute upper respiratory infection, unspecified Vasquez Crowder NP 04/21/2019 L84 Corns and callosities Vasquez Crowder NP 04/21/2019 L60.0 Ingrowing nail Vasquez Crowder NP 04/21/2019 H61.23 Impacted cerumen, bilateral Vasquez Crowder NP Plan of Treatment 08/09/2019 - Yvette Keenan, N.P.J45.41 Moderate persistent asthma with (acute) exacerbationNew Medication:Prednisone 20 mg - 3 tabs daily for 5 days, then 2 tablets for a day, then 1 tablet for a day, then stopFluticasone Propionate 50 mcg/Act - 2 sprays each nostril daily as neededComments:For your asthmatic bronchitis: I have prescribed a course of steroids, Prednisone 20 mg. For your sinus congestion I have prescribed a steroid nasal spray.If you do not gradually start to feel better, please contact the office.B37.3 Candidiasis of vulva and vaginaNew Medication:Fluconazole 150 mg - one by mouth every 3 days for 3 dosesComments:For your vaginal yeast infection: I sent in a prescription for an oral medication, Fluconazole. Takeone table every 3 days for 3 doses. If you do not gradually improve, please contact the office. Functional Status Description No Information Available Mental Status Description No Information Available Referrals Refer to Reason for Referral Status Appt Date Chase Narayanan DPQuyen afternoon appt Sent [address] [place] [address] [phone]
[2019-09-18 13:50] LABS: ABS Basophils 0.1 10^3/ul (0-0.2); ABS Eosinophils 0.4 10^3/ul (0-0.6); ABS Lymphocytes 1.7 10^3/ul (1.0-4.8); ABS Monocytes 0.7 10^3/ul (0-0.8); Eosinophil % 4.3 %; Hematocrit 39 % (35-47); Hemoglobin 13.1 g/dL (12.0-16.0); Lymphocyte % 17.4 %; Mean Corpuscular HGB Conc 34 g/dL (31-36); Mean Corpuscular Hemoglobin 29 pg (27-31); Mean Corpuscular Volume 87 fL (80-97); Mean Platelet Volume 7.8 fL (7.4-10.4); Platelet Count 367 10^3/uL (150-450); Red Blood Count 4.47 10^6 /uL (3.70-4.87); Red Cell Distribution Width 13 % (10-15); White Blood Count 9.9 10^3/uL (3.5-10.8)
[2019-09-18 14:05] LABS: ALT 8 U/L (7-52); AST 14 U/L (13-39); Albumin 3.7 g/dL (3.2-5.2); Alkaline Phosphatase 87 U/L (34-104); Anion Gap 7 mmol/L (2-11); BUN/Creatinine Ratio 10.8 (8-20); Blood Urea Nitrogen 9 mg/dL (6-24); CO2 Carbon Dioxide 25 mmol/L (22-32); Calcium 9.1 mg/dL (8.6-10.3); Chloride 106 mmol/L (101-111); Globulin 3.6 g/dL (2-4); Glucose 51 mg/dL (70-100); Potassium 4.2 mmol/L (3.5-5.0); Sodium 138 mmol/L (135-145); Total Protein 7.3 g/dL (6.4-8.9)
[2019-09-18 14:32] LABS: HCG Pregnancy < 0.60 mIU/mL
[2019-09-18] MEDS ORDERED: NS 0.9% 1000 ML** 1,000 ML IV ONE (15:18)
[2019-09-18] MEDS ORDERED: Ketorolac INJ* 30 MG/ML 1 ML VIAL IV PUSH ONE (15:19)
[2019-09-18] MEDS ORDERED: Ondansetron INJ* 2 MG/ML VIAL IV ONE (15:19)
--- NOTE | 2019-09-18 15:22 | ED ---
GI/ HPI - HPI Summary HPI Summary: 23 year old female presents with dysuria for the past couple days. She states that she started to develop sharp flank pain two days ago that has gotten worst. She admits to nausea and vomiting. No fevers. Denies any history of kidney infection. Does have a history UTIs. She denies any abnormal vaginal discharge. Last menstrual period was September 07. She is on control. She denies any abdominal pain. Denies any hematuria. No cough. No chest pain or shortness of breath. Is a type I diabetic. States that her sugars felt little in the waiting room and seen some crackers. She is on an insulin pump. - History of Current Complaint Chief Complaint: EDFlankPain Time Seen by Provider: 09/18/19 15:11 Stated Complaint: KIDNEY PAIN Hx Last Menstrual Period: 07/26/19 Pain Intensity: 4 - Allergy/Home Medications Allergies/Adverse Reactions: Allergies Allergy/AdvReac Type Severity Reaction Status Date / Time vancomycin Allergy Hives Verified 09/18/19 13:18 wheat Allergy Diarrhea Verified 09/18/19 13:18 Home Medications: Home Medications Ethinyl Estradiol/Drospirenone [Drospirenone-Ee 3-0.03 mg Tab] 1 tab PO DAILY [History Confirmed 09/18/19] Omeprazole CAP (NF) [Prilosec CAP* 20 MG] 20 mg PO DAILY 09/18/19 [History Confirmed 09/18/19] PMH/Surg Hx/FS Hx/Imm Hx Endocrine/Hematology History: Reports: Hx Diabetes - type 1 - uses insulin pump Denies: Hx Anticoagulant Therapy, Hx Blood Disorders, Hx Thyroid Disease Cardiovascular History: Denies: Hx Congestive Heart Failure, Hx Hypertension Respiratory History: Reports: Hx Asthma Denies: Hx Chronic Obstructive Pulmonary Disease (COPD) GI History: Denies: Hx Ulcer History: Denies: Hx Renal Disease Sensory History: Reports: Hx Contacts or Glasses Opthamlomology History: Reports: Hx Contacts or Glasses Psychiatric History: Reports: Hx Anxiety, Hx Depression - Surgical History Surgery Procedure, Year, and Place: app2015, cyst removed from chest - Immunization History Date of Tetanus Vaccine: Unk Date of Influenza Vaccine: Fall 2014 Infectious Disease History: No Infectious Disease History: Reports: Hx of Known/Suspected MRSA - tx'd w/ IV vancomycin at [facility] - unsure of MRSA status Denies: Hx Hepatitis, Hx Human Immunodeficiency Virus (HIV), Traveled Outside the [place] in Last 30 Days - Family History Known Family History: Positive: None, Diabetes - sister and grandmother Family History: no cardio vascular issues reported in family lineage - Social History Alcohol Use: None Hx Substance Use: No Substance Use Type: Reports: Marijuana Hx Tobacco Use: No Smoking Status (MU): Former Smoker Type: eCigarettes Review of Systems Negative: Fever Negative: Chest Pain Negative: Shortness Of Breath Positive: Vomiting, Nausea Positive: dysuria, flank pain All Other Systems Reviewed And Are Negative: Yes Physical Exam Triage Information Reviewed: Yes Vital Signs On Initial Exam: Initial Vitals Temp Pulse Resp BP Pulse Ox 97.9 F 86 19 141/98 98 09/18/19 13:16 09/18/19 13:16 09/18/19 13:16 09/18/19 13:16 09/18/19 13:16 Vital Signs Reviewed: Yes Appearance: Positive: Well-Appearing Skin: Positive: Warm, Dry Head/Face: Positive: Normal Head/Face Inspection Eyes: Positive: Normal, EOMI, ELIANA, Conjunctiva Clear ENT: Positive: Normal ENT inspection, Pharynx normal, TMs normal Respiratory/Lung Sounds: Positive: Clear to Auscultation, Breath Sounds Present Cardiovascular: Positive: Normal, RRR Abdomen Description: Positive: Nontender, Soft, CVA Tenderness (R), CVA Tenderness (L) Bowel Sounds: Positive: Present Musculoskeletal: Positive: Normal Neurological: Positive: Normal Psychiatric: Positive: Normal Procedures - Sedation Patient Received Moderate/Deep Sedation with Procedure: No Diagnostics - Vital Signs Vital Signs Temp Pulse Resp BP Pulse Ox 09/18/19 13:16 97.9 F 86 19 141/98 98 - Laboratory Lab Results: Lab Results 09/18/19 09/18/19 Range/Units 13:39 13:39 WBC 9.9 (3.5-10.8) 10^3/uL RBC 4.47 (3.70-4.87) 10^6 /uL Hgb 13.1 (12.0-16.0) g/dL Hct 39 (35-47) % MCV 87 (80-97) fL MCH 29 (27-31) pg MCHC 34 (31-36) g/dL RDW 13 (10-15) % Plt Count 367 (150-450) 10^3/uL MPV 7.8 (7.4-10.4) fL Neut % (Auto) 70.7 % Lymph % (Auto) 17.4 % Thomas % (Auto) 6.6 % Eos % (Auto) 4.3 % Baso % (Auto) 1.0 % Absolute Neuts (auto) 7.0 (1.5-7.7) 10^3/ul Absolute Lymphs (auto) 1.7 (1.0-4.8) 10^3/ul Absolute Monos (auto) 0.7 (0-0.8) 10^3/ul Absolute Eos (auto) 0.4 (0-0.6) 10^3/ul Absolute Basos (auto) 0.1 (0-0.2) 10^3/ul Absolute Nucleated RBC 0.0 10^3/ul Nucleated RBC % 0.0 Sodium 138 (135-145) mmol/L Potassium 4.2 (3.5-5.0) mmol/L Chloride 106 (101-111) mmol/L Carbon Dioxide 25 (22-32) mmol/L Anion Gap 7 (2-11) mmol/L BUN 9 (6-24) mg/dL Creatinine 0.83 (0.51-0.95) mg/dL Est GFR ( Amer) 104.0 (>60) Est GFR (Non-Af Amer) 86.0 (>60) BUN/Creatinine Ratio 10.8 (8-20) Glucose 51 L (70-100) mg/dL Calcium 9.1 (8.6-10.3) mg/dL Total Bilirubin 0.30 (0.2-1.0) mg/dL AST 14 (13-39) U/L ALT 8 (7-52) U/L Alkaline Phosphatase 87 (34-104) U/L Total Protein 7.3 (6.4-8.9) g/dL Albumin 3.7 (3.2-5.2) g/dL Globulin 3.6 (2-4) g/dL Albumin/Globulin Ratio 1.0 (1-3) Beta HCG, Quant < 0.60 mIU/mL Result Diagrams: 09/18/19 13:39 09/18/19 13:39 Lab Statement: Any lab studies that have been ordered have been reviewed, and results considered in the medical decision making process. - Ultrasound No standard instances Ultrasound Interpretation Completed By: Radiologist Summary of Ultrasound Findings: IMPRESSION: NO HYDRONEPHROSIS OR NEPHROLITHIASIS Re-Evaluation - Re-Evaluation First Eval Re-Evaluation Time: 15:25 Comment: sugar is 64 gave some juice Second Eval Re-Evaluation Time: 15:51 Comment: tolerated juice but does not want anything more Third Eval Re-Evaluation Time: 16:18 Comment: still nausous Fourth Eval Re-Evaluation Time: 16:37 Comment: will try crackers, patient denies any pelvic pain or vaginal discharge so will not do a pelvic at this time Fifth Eval Re-Evaluation Time: 17:10 Change: Improved Comment: feels better, tolerated crackers GIGU Course/Dx - Course Course Of Treatment: 23 year old female presents with dysuria for the past couple days. She states that she started to develop sharp flank pain two days ago that has gotten worst. She admits to nausea and vomiting. No fevers. Denies any history of kidney infection. Does have a history UTIs. She denies any abnormal vaginal discharge. Last menstrual period was September 07. She is on control. She denies any abdominal pain. Denies any hematuria. No cough. No chest pain or shortness of breath. Is a type I diabetic. States that her sugars felt little in the waiting room and seen some crackers. She is on an insulin pump. On exam has tenderness over bilateral flanks. Nontender abdomen. wbc normal. Sugar is below 64 so had her drink some juice. We'll give fluids and Zofran and Toradol. wbc normal. Urine shows no infection. ultrasound shows no acute findings. patient still nausous so will give reglan. recheck sugar shows 92 will have restart pump. tolerated crackers. will give nausea medication. told contact endo about low sugar who are managing pump. told follow up with primary. patient understand and agrees with plan. - Diagnoses Differential Diagnoses - Female: Pyelonephritis, Urinary Tract Infection, Ureteral Calculi, Other - hypoglycemia Provider Diagnoses: Hypoglycemia, Nausea, Flank pain Discharge ED - Sign-Out/Discharge Documenting (check all that apply): Patient Departure - Discharge Plan Condition: Good Disposition: HOME Prescriptions: Ondansetron ODT TAB* [Zofran 4 MG Odt TAB*] 4 mg PO Q6H PRN #12 tab.odt PRN Reason: Nausea Patient Education Materials: Hypoglycemia in a Person with Diabetes (ED), Flank Pain (ED) Referrals: Vasquez Crowder NP [Primary Care Provider] - Additional Instructions: Can take Zofran every 6 hours as needed for nausea Drink small amounts of fluid as tolerated check sugars more frequently today When able to eat follow BRAT diet: Bananas, rice, applesauce, toast Take ibuprofen or Tylenol for pain as needed every 6 hours Follow up with primary within 5 days call endocrinology about low sugars Return to ED if develop any new or worsening symptoms - Billing Disposition and Condition Condition: GOOD Disposition: Home
[2019-09-18 15:55] LABS: Urine Appearance Clear; Urine Bilirubin Negative (Negative); Urine Blood 1+ (Negative); Urine Color Yellow; Urine Glucose Negative (Negative); Urine Ketones Trace (Negative); Urine Nitrite Negative (Negative); Urine Protein Negative (Negative); Urine Specific Gravity 1.009 (1.010-1.030); Urine Urobilinogen Negative (Negative)
[2019-09-18 16:02] LABS: Urine Bacteria Absent (Absent); Urine Red Blood Cell Absent (Absent); Urine Squamous Epithelial Cell Present (Absent); Urine White Blood Cell Absent (Absent)
[2019-09-18] MEDS ORDERED: Metoclopramide IV* 5 MG/ML 2 ML VIAL IV SLOW PU ONE (16:18)
[2019-09-18 16:53] LABS: C Reactive Protein 21.01 mg/L (<8.01)
[2019-09-18 18:51] VITALS: BP 129/87
== END 2019-09-18 18:50 | disposition home or self-care (01) ==
LOC: ED 13:14
DX: E10.649 Type 1 diabetes mellitus with hypoglycemia without coma (principal); Z96.41 Presence of insulin pump (external) (internal); R11.0 Nausea; R10.84 Generalized abdominal pain; Z87.891 Personal history of nicotine dependence; Z79.899 Other long term (current) drug therapy
CPT/HCPCS: 36415; 76775; 80053; 81003; 81015; 84702; 85025; 86140; 96361; 96374; 96375; 99282; J1885; J2405; J2765

== ENCOUNTER 2019-11-01 14:48 | Emergency (ER) | payer OTHER ==
[2019-11-01 15:52] VITALS: BP 140/64
[2019-11-01 16:13] LABS: Influenza A Molecular Negative (Negative); Influenza B Molecular Negative (Negative)
--- NOTE | 2019-11-01 16:56 | UC ---
FLU HPI - HPI Summary HPI Summary: 24 yo female presents with flu-like symptoms. She tells me that over the last 5 days she has had fatigue, body aches, cough, sore throat, and mild headache. Yesterday she developed urinary burning and some frequency. Notes her BS has been a little elevated (type 1 DM) -- last reading was this morning and was 107. She has not been taking anything OTC for her symptoms. Denies fever, rash, SOB, chest pain, abdominal pain, n/v/d/c, hematuria, back or flank pain. - History of Current Complaint Chief Complaint: UCGeneralIllness Stated Complaint: HEADACHE Time Seen by Provider: 11/01/19 16:56 Hx Last Menstrual Period: 10/02/19 Onset/Duration: Sudden Onset Severity Currently: Moderate Severity Initially: Moderate Pain Intensity: 6 Pain Scale Used: 0-10 Numeric - Allergy/Home Medications Allergies/Adverse Reactions: Allergies Allergy/AdvReac Type Severity Reaction Status Date / Time vancomycin Allergy Hives Verified 11/01/19 15:52 wheat Allergy Diarrhea Verified 11/01/19 15:52 Home Medications: Home Medications Cholecalciferol TAB* [Vitamin D TAB*] 2,000 unit PO DAILY 07/04/18 [History Confirmed 09/18/19] Loratadine [Claritin 10 MG CAP] 10 mg PO DAILY 07/04/18 [History Confirmed 09/18] Insulin Lispro [Admelog 100 units/ml 10 ml VIAL] 0 unit SQ DAILY 02/01/19 [ History Confirmed 09/18/19] Albuterol HFA INHALER* [Ventolin HFA Inhaler*] 1 - 2 puff INH Q4H PRN #1 mdi [Rx Confirmed 09/18/19] Albuterol 2.5MG/3ML (0.083%)* [Ventolin 2.5 MG/3 ML NEB.JORGE*] 2.5 mg INH Q4H PRN #90 each 08/05/19 [Rx Confirmed 11/01/19] Ethinyl Estradiol/Drospirenone [Drospirenone-Ee 3-0.03 mg Tab] 1 tab PO DAILY [History Confirmed 09/18/19] Omeprazole CAP (NF) [Prilosec CAP* 20 MG] 20 mg PO DAILY 09/18/19 [History Confirmed 09/18/19] Ondansetron ODT TAB* [Zofran 4 MG Odt TAB*] 4 mg PO Q6H PRN #12 tab.odt [Rx Confirmed 11/01/19] Cephalexin CAP* [Keflex CAP*] 500 mg PO TID #21 cap 11/01/19 [Rx] Fluconazole 150 MG TAB* [Diflucan 150 MG TAB*] 150 mg PO ONCE #2 tablet [Rx] PMH/Surg Hx/FS Hx/Imm Hx Endocrine History: Diabetes Respiratory History: Asthma GI/ History: Gastroesophageal Reflux Other History Of: Negative For: Anticoagulant Therapy - Surgical History Surgical History: Yes Surgery Procedure, Year, and Place: appy 2016, cyst removed from chest - Family History Known Family History: Positive: Diabetes - sister and grandmother Family History: no cardio vascular issues reported in family lineage - Social History Lives: With Family Alcohol Use: None Substance Use Type: Marijuana Smoking Status (MU): Former Smoker Type: eCigarettes - Immunization History Most Recent Influenza Vaccination: 2016 Most Recent Tetanus Shot: Unknown Most Recent Pneumonia Vaccination: Never Review of Systems All Other Systems Reviewed And Are Negative: No Constitutional: Positive: Fatigue, Other - Body aches Skin: Positive: Negative Eyes: Positive: Negative ENT: Positive: Sore Throat, Nasal Discharge Respiratory: Positive: Cough Cardiovascular: Positive: Negative Gastrointestinal: Positive: Negative Genitourinary: Positive: Dysuria Neurovascular: Positive: Negative Neurological/Mental Status: Positive: Negative Psychological: Positive: Negative Physical Exam - Summary Physical Exam Summary: GENERAL: NAD. WDWN. No pain distress. SKIN: No rashes, sores, or open wounds. HEENT: Head: AT/NC Eyes: PERRLA. EOM intact. Conjunctiva clear without inflammation or discharge. Ears: Hearing grossly normal. TMs intact, no bulging, erythema, or edema. Nose: Nasal mucosa pink and moist. NTTP maxillary and frontal sinus. Throat: Posterior oropharynx without exudates, erythema, or tonsillar enlargement. Uvula midline. NECK: Supple. Nontender. No lymphadenopathy. CHEST: CTAB. No r/r/w. No accessory muscle use. Breathing comfortably and in no distress. CV: RRR. Pulses intact. Brisk cap refill. ABDOMEN: Soft. NTTP. No distention or guarding. No CVA tenderness. Bowel sounds present NEURO: Alert. PSYCH: Age appropriate behavior. Triage Information Reviewed: Yes Vital Signs: Initial Vital Signs Temp 98.1 F 11/01/19 15:48 Pulse 80 11/01/19 15:48 Resp 16 11/01/19 15:48 BP 140/64 11/01/19 15:48 Pulse Ox 99 11/01/19 15:48 Laboratory Tests 11/01/19 11/01/19 16:02 16:03 POC Urine Color Yellow POC Urine Clarity Cloudy POC Urine pH 7.5 POC Ur Specif [place] 1.020 POC Urine Protein Negative POC Ur Glucose (UA) Negative POC Urine Ketones Negative POC Urine Blood Negative POC Urine Nitrite Negative POC Urine Bilirubin Negative POC Urine Urobilinogen 0.2 POC U Leukocyte Esteras 1+ A Influenza A (Rapid) Negative Influenza B (Rapid) Negative Vital Signs Reviewed: Yes Flu Course/Dx - Course Course Of Treatment: POC flu negative. UA as above. Will treat with keflex for UTI and advised to take tylenol as directed for flu-like symptoms. Urine sent for culture. - Differential Dx/Diagnosis Provider Diagnosis: UTI (urinary tract infection) Discharge ED - Sign-Out/Discharge Documenting (check all that apply): Patient Departure All imaging exams completed and their final reports reviewed: No Studies - Discharge Plan Condition: Stable Disposition: HOME Prescriptions: Cephalexin CAP* [Keflex CAP*] 500 mg PO TID #21 cap Fluconazole 150 MG TAB* [Diflucan 150 MG TAB*] 150 mg PO ONCE #2 tablet Patient Education Materials: Urinary Tract Infection in Women (ED) Forms: *Work Release Referrals: Vasquez Crowder NP [Primary Care Provider] - Additional Instructions: If you develop a fever, shortness of breath, chest pain, new or worsening symptoms - please call your PCP or go to the ED immediately. Your blood pressure was high at todays visit. Please see your primary provider within 4 weeks for recheck and re-evaluation. - Billing Disposition and Condition Condition: STABLE Disposition: Home
== END 2019-11-01 17:26 | disposition home or self-care (01) ==
LOC: UCEAST 14:48
DX: N39.0 Urinary tract infection, site not specified (principal); R53.83 Other fatigue; E11.9 Type 2 diabetes mellitus without complications; J45.909 Unspecified asthma, uncomplicated; J02.9 Acute pharyngitis, unspecified; R09.89 Other specified symptoms and signs involving the circulatory and respiratory systems; R52 Pain, unspecified; R05 Cough; Z79.4 Long term (current) use of insulin; Z79.899 Other long term (current) drug therapy; Z88.1 Allergy status to other antibiotic agents; Z87.891 Personal history of nicotine dependence; Z91.018 Allergy to other foods
CPT/HCPCS: 81003; 87086; 99212; G0463

== ENCOUNTER 2019-11-08 14:37 | Emergency (ER) | payer OTHER ==
--- OUTSIDE RECORDS SUMMARY | 2019-11-08 14:43 | XMS REPORT | Summary of Care ---
:1995 Author Organization [facility] Address [address] [place] [address] Care Team Providers Name Role Phone Vasquez Crowder NP Primary Care Provider Reason for Visit Reason Comments Diabetes Encounter Details Date Type Department Care Team Description 11/03/2019 Office Visit Nuris Morris Type 1 diabetes mellitus with hyperglycemia (Primary Dx); [facility] [place] Insulin pump status; [address] Long-term insulin use; [place] [address] Hypoglycemia unawareness in type 1 diabetes mellitus; [place], [place] [phone] Dyslipidemia; Vitamin D deficiency; [phone] Morbid obesity with BMI of 40.0-44.9, adult Allergies Active Allergy Reactions Severity Noted Date Comments Metformin And Related Nausea And Vomiting Medium 07/11/2018 Metformin XR 500 mg tab once/day Vancomycin Hives 11/04/2017 documented as of this encounter (statuses as of 11/03/2019) Medications Medication Sig Dispensed Refills Start End Status Date Date loratadine Take 10 mg by 0 Active (CLARITIN) 10 MG mouth daily tablet ibuprofen Take 600 mg by 0 Active (ADVIL,MOTRIN) mouth every 6 600 MG tablet (six) hours as needed for Pain albuterol Inhale 2 puffs 0 Active (VENTOLIN HFA) into the lungs 108 (90 Base) every 6 (six) MCG/ACT inhaler hours insulin glargine Use as directed 5 pen 5 Active (BASAGLAR inject 100 units 8 KWIKPEN) 100 nightly for pump UNIT/ML pen failure E10.65 Insulin Pen Use as directed. 100 each 5 Active Needle (BD PEN Use as directed to 8 NEEDLE MICHAEL U/F) inject insulin 32G X 4 MM daily E10.65 MISCIndications: Uncontrolled type 1 diabetes mellitus with hyperglycemia budesonide-formot Inhale 2 puffs 0 Active federico (SYMBICORT) into the lungs Two 80-4.5 MCG/ACT Times Daily inhaler glucagon Inject in case of 1 each Active (GLUCAGON severe 8 EMERGENCY) 1 MG hypoglycemia IM. injection Dx E10.65 Norgestim-Eth Take 1 tablet by 3 Active Estrad Triphasic mouth daily 9 0.18/0.215/0.25 MG-25 MCG TABS omeprazole Take by mouth 2 Active (PRILOSEC) 20 MG daily 9 capsule ONETOUCH VERIO Use as instructed 600 each 1 Active test to test blood 9 020 stripIndications: glucose up to 6 Type 1 diabetes times a day. Dx: mellitus with E10.65 hyperglycemia OneTouch (DELICA) Use as instructed 600 each Active MISC fine to test blood 9 lancetsIndication glucose up to 6 s: Type 1 times a day. Dx: diabetes mellitus E10.65 with hyperglycemia Vitamin D 2000 TAKE 1 TABLET BY 30 tablet Active UNIT Oral Tablet MOUTH DAILY 9 Acetone (Urine) USE DIRECTED IF 50 each Active Test In Vitro GLUCOSE GREATER 0 Strip (KETOSTIX) THAN 250 TWICE MiniMed Pump Use as directed. 50 each 3 Active [place] Use as directed 0 3mlIndications: change site every Type 1 diabetes other day MMT 923 mellitus with E10.65 hyperglycemia Ammonium Lactate Apply twice daily 400 g 3 Active 12 % External to feet 0 Lotion (AMLACTIN) Admelog 100 INJECT 190 vial 1 Active UNIT/ML SUBCUTANEOUSLY 0 Subcutaneous (UNDER THE SKIN) Solution (insulin VIA INSULIN PUMP lispro)Indication DIRECTED - s: Type 1 MAXIMUM DAILY DOSE diabetes mellitus 208 UNITS with hyperglycemia Glucose 4 GM Oral Chew 1 tablet by 50 tablet 5 Active Tablet Chewable Mouth as needed 0 for Low blood sugarChew 3 by mouth as needed for hypoglycemia SM Alcohol Prep Inject 1 Units 300 each 5 Active 70 % into the skin as 0 PadIndications: needed Up to 10 Type 1 diabetes times daily. Dx: mellitus with E10.65 hyperglycemia Glucagon 3 [place] 3mg in one 1 each 3 Active MG/DOSE Nasal nostril to treat 0 Powder (BAQSIMI severe ONE PACK) hypoglycemia. Dx E10.65 . OneTouch Verio 1 Device by Does 1 kit 0 Active Flex System not apply route 0 w/Device Kit Four times daily before meals and nightly Pt tests up to eight times a day hydrOXYzine TAKE 1 TO 2 0 Discontinued (ATARAX) 25 MG TABLETS BY MOUTH 9 020 (Discontinued tablet EVERY 6 HOURS by another NEEDED FOR ANXIETY clinician) glucose 4 GM Chew 1 tablet by 50 tablet 5 Discontinued chewable tablet Mouth as needed 9 020 (Reorder) for Low blood sugarChew 3 by mouth as needed for hypoglycemia azithromycin TAKE 2 TABLETS BY 0 Discontinued (ZITHROMAX) 250 MOUTH TODAY, THEN 9 020 (Discontinued MG tablet TAKE 1 TABLET by another DAILY FOR 4 MORE clinician) DAYS Blood Glucose Use 4x daily to 1 kit 0 Discontinued Monitoring Suppl check sugars 9 020 (Discontinued (HAYLIE CONTOUR E11.65 by another LINK 2.4) clinician) w/Device KITIndications: Type 1 diabetes mellitus with hyperglycemia Blood Glucose by Does not apply 0 Discontinued Monitoring Suppl route Four times 020 (Reorder) (ONETOUCH VERIO daily before meals FLEX SYSTEM) and nightly Pt w/Device KIT tests up to eight times a day urea (CARMOL) 40 Apply topically 198.6 each 2 Discontinued % cream daily 9 020 (Cost of medication) SM Alcohol Prep USE DIRECTED UP 200 each 5 Discontinued 70 % TO 6 TIMES DAILY 9 020 (Reorder) PadIndications: Type 1 diabetes mellitus with hyperglycemia Infusion Set 42" Use as directed. 50 each 3 Discontinued 6MMIndications: Use as directed 0 020 (Discontinued Type 1 diabetes change site every by another mellitus with other day MMt 332A clinician) hyperglycemia E10.65 Ammonium Lactate Apply twice daily 400 g 3 Discontinued 12 % External to feet 0 020 (Discontinued Lotion (AMLACTIN) by another clinician) Ammonium Lactate Apply to soles of 385 g 3 Discontinued 12 % External feet BID 0 020 (Duplicate) Cream (AMLACTIN) documented as of this encounter (statuses as of 11/03/2019) Active Problems Problem Noted Date Insulin pump status 03/15/2019 Hypoglycemia unawareness in type 1 diabetes mellitus 07/11/2018 Dry skin 07/11/2018 Frequent headaches 07/11/2018 Type 1 diabetes mellitus with hyperglycemia 11/04/2017 Morbid obesity with BMI of 40.0-44.9, adult 11/04/2017 Dyslipidemia 11/04/2017 Vitamin D deficiency 11/04/2017 Long-term insulin use 11/04/2017 Last Assessment & Plan: Paradigm revel 723 admelog Basal rate: 0.00 : 3.75 units/hour 6.00 3.75 units/hour Total basal 90 units ICR 8.0 ISF 20 Target 00.00 100-120 06.30 100-120 10.00 100-120 Active insulin time 4 hrs documented as of this encounter (statuses as of 11/03/2019) Resolved Problems Problem Noted Date Resolved Date Severe diabetic hypoglycemia 07/11/2018 03/15/2019 Nocturnal hypoglycemia 07/11/2018 11/03/2019 PCOS (polycystic ovarian syndrome) 11/04/2017 07/11/2018 documented as of this encounter (statuses as of 11/03/2019) Social History Tobacco Use Types Packs/Day Years Used Date Never Smoker Smokeless Tobacco: Former User Chew Alcohol Use Drinks/Week oz/Week Comments Yes 1-2 Cans of beer 1.0 - 2.0 once a month Sex Assigned at Date Recorded Not on file Job Start Date Occupation Industry Not on file Not on file Not on file Travel History Travel Start Travel End No recent travel history available. documented as of this encounter Last Filed Vital Signs Vital Sign Reading Time Taken Comments Blood Pressure 128/60 11/03/2019 2:42 PM EST Pulse 83 11/03/2019 2:42 PM EST Temperature - - Respiratory Rate 18 11/03/2019 2:42 PM EST Oxygen Saturation - - Inhaled Oxygen Concentration - - Weight 91.6 kg (202 lb) 11/03/2019 2:42 PM EST Height 149.9 cm (4' 11") 11/03/2019 2:42 PM EST Body Mass Index 40.8 11/03/2019 2:42 PM EST documented in this encounter Patient Instructions Patient InstructionsNuris Douglas PA - 11/03/2019 3:20 PM ESTLong-term insulin use Paradigm revel 723 admelog Basal rate: 0.00 : 3.75 units/hour 6.00 3.75 units/hour Total basal 90 units ICR 8.0 ISF 20 Target 00.00 100-120 06.30 100-120 10.00 100-120 Active insulin time 4 hrs Schedule eye exam 3 :15 PM EST documented in this encounter Progress Notes Nuris Douglas PA - 11/03/2019 3:20 PM EST Nicole Mahajan is a 24 y.o. female here for follow-up of diabetes type 1. The patient was first diagnosed in the year 2000, at the age of 5. Patient last seen at [facility] 03/15/19 by myself. Previous patient of Dr. Berman. She no showed appt 08/16/[address] Blair Interval history: diagnosed with UTI on Wednesday and picking up script today. She has some higher glucoses earlier this week related to the UTI. Concerns for today's visit: having lows lately. She is more active as she is working as hotel front desk clerk/deli person at [employer]. Her meter keeps stating the battery needs to be changed and is asking for a replacement meter to [place]. Microvascular complications: No retinopathy, nephropathy, neuropathy Macrovascular complications: No h/o OR, CVA, PVD DKA: no She currently manages her diabetes with: Paradigm revel 723- she contacted [facility] and is eligible to upgrade in November 2019.- she is interested in 670G with CGM Admelog vials Basal rate: 0.00 4.2 6.00 4.2 Total basal 100.8 units ICR 8.0 ISF 17 Target: 00.00 100-120 06.30 100-120 10.00 100-120 Active insulin time 4 hrs Site change: every 2 days: wears on lower back/stomach Has Basaglar in case of pump failure Past diabetic medications: Jardiance (felt weird and d/c) Metformin (vomiting/nausea) DIABETES RELATED ROS: 1. Blood sugar checks x 4-8/day 2. Symptoms of hypoglycemia: Yes, a few times weekly Severe lows: Yes recently Required outside assistance: no Loss of consiousness: no Seizure: no 3. Threshold: 50s hypoglycemia unawareness- her POC glucose was 65 and was unaware it was low. She drank a juice and it improved to 75. She is not driving 4. Neuropathic symptoms (paresthesiae/numbness/pain): + CTS bilateral hands (L& gt;R)- has brace for the right side 5. Last eye exam: January or February 2018, [place]. No DR per patient. [facility]. due 6. Foot Ulceration: no 7. Macrovascular disease symptoms: angina: no intermittent claudication: no TIA: no 8. Hr Leader: no 9. Loss Prevention And Safety Manager: no 10. Data Management Manager: no 11. OB: about 1 year ago DIET: Breakfast: skips Lunch: 11am-2pm: sandwich with a fruit possibly with juice/milk/water Snack: cookies and millk Dinner: 5-8pm: protein ,carbs - potatoes , bread, pasta, veggies: soda diet/ water/milk/juice Snacks: after dinner: occasionally, but no usually Beverages: water Alcohol: no Exercise : 2 -3 times per day walking 1.5 miles or more Swimming - in summer every day HOME BLOOD GLUCOSE RECORD Glucometer/Log Sheets provided:Yes Continuous glucose monitoring system downloaded and reviewed. Mean sensor glucose value: not available for examination Past Medical History: Diagnosis Date Asthma Depressive disorder Dry skin 07/11/2018 Frequent headaches 07/11/2018 Hypoglycemia unawareness in type 1 diabetes mellitus 07/11/2018 Insulin pump status 03/15/2019 Migraine Nocturnal hypoglycemia 07/11/2018 PTSD (post-traumatic stress disorder) Severe diabetic hypoglycemia 07/11/2018 Type 1 diabetes mellitus on insulin therapy Past Surgical History: Procedure Laterality Date appendectomy DILATION AND CURETTAGE OF UTERUS surgery for cyst on chest boil Family History Problem Relation Age of Onset Diabetes type I Sister at age 4 Thyroid disease Sister hypothyroidism Depression Mother No Known Problems Father No Known Problems Brother No Known Problems Sister No Known Problems Sister Social History Tobacco Use Smoking status: Never Smoker Smokeless tobacco: Former User Types: Chew Substance Use Topics Alcohol use: Yes Alcohol/week: 1.0 - 2.0 standard drinks Types: 1 - 2 Cans of beer per week Comment: once a month Drug use: No Allergies Allergen Reactions Metformin And Related Nausea And Vomiting Metformin XR 500 mg tab once/day Vancomycin Hives Current Outpatient Medications Medication Sig Dispense Refill Acetone (Urine) Test In Vitro Strip (KETOSTIX) USE DIRECTED IF GLUCOSE GREATER THAN 250 TWICE 50 each 5 Admelog 100 UNIT/ML Subcutaneous Solution (insulin lispro) INJECT SUBCUTANEOUSLY (UNDER THE SKIN) VIA INSULIN PUMP DIRECTED - MAXIMUM DAILY DOSE 208 UNITS 190 vial 1 albuterol (VENTOLIN HFA) 108 (90 Base) MCG/ACT inhaler Inhale 2 puffs into the lungs every 6 (six) hours Ammonium Lactate 12 % External Lotion (AMLACTIN) Apply twice daily to feet 400 g 3 budesonide-formoterol (SYMBICORT) 80-4.5 MCG/ACT inhaler Inhale 2 puffs into the lungs Two Times Daily glucagon (GLUCAGON EMERGENCY) 1 MG injection Inject in case of severe hypoglycemia IM. Dx E10.65 1 each 1 Glucose 4 GM Oral Tablet Chewable Chew 1 tablet by Mouth as needed for Low blood sugarChew 3by mouth as needed for hypoglycemia 50 tablet 5 ibuprofen (ADVIL,MOTRIN) 600 MG tablet Take 600 mg by mouth every 6 (six ) hours as needed for Pain insulin glargine (BASAGLAR KWIKPEN) 100 UNIT/ML pen Use as directed inject 100 units nightly for pump failure E10.65 5 pen 5 Insulin Pen Needle (BD PEN NEEDLE MICHAEL U/F) 32G X 4 MM [facility] Use as directed. Use as directed to inject insulin daily E10.65 100 each 5 loratadine (CLARITIN) 10 MG tablet Take 10 mg by mouth daily MiniMed Pump [place] 3ml Use as directed. Use as directed change site every other day MMT 923 E10.65 50 each 3 Norgestim-Eth Estrad Triphasic 0.18/0.215/0.25 MG-25 MCG TABS Take 1 tablet by mouth daily 3 omeprazole (PRILOSEC) 20 MG capsule Take by mouth daily 2 OneTouch (DELICA) [facility] fine lancets Use as instructed to test blood glucose up to 6 times a day. Dx: E10.65 600 each 1 OneTouch Verio Flex System w/Device Kit 1 Device by Does not apply route Four times daily before meals and nightly Pt tests up to eight times a day 1 kit 0 ONETOUCH VERIO test strip Use as instructed to test blood glucose up to 6 times a day. Dx: E10.65 600 each 1 SM Alcohol Prep 70 % Pad Inject 1 Units into the skin as needed Up to 10 times daily. Dx: E10.65 300 each 5 Vitamin D 2000 UNIT Oral Tablet TAKE 1 TABLET BY MOUTH DAILY 30 tablet 5 Glucagon 3 MG/DOSE Nasal Powder (BAQSIMI ONE PACK) Nodaway 3mg in one nostril to treat severe hypoglycemia. Dx E10.65 . 1 each 3 No current facility-administered medications for this visit. ROS: Positives noted in HPI, all other systems reviewed and negative PHQ-2 Score: PHQ-9 Score: PHYSICAL EXAM: Vitals: 11/03/19 1442 BP: 128/60 Pulse: 83 Resp: 18 Weight: 91.6 kg (202 lb) Height: 1.499 m (4' 11") Body mass index is 40.8 kg/m. Wt Readings from Last 3 Encounters: 11/03/19 91.6 kg (202 lb) 03/15/19 95.9 kg (211 lb 6.7 oz) 12/14/18 97.5 kg (215 lb) BP Readings from Last 3 Encounters: 11/03/19 128/60 06/09/19 130/62 03/15/19 122/70 GENERAL: Awake, alert and in no apparent distress, obese EYES: conjunctivae are pink and moist, no exophthalmos, lag or stare LYMPHATIC: no cervical or supraclavicular adenopathy CARDIOVASCULAR: regular rate and rhythm, no murmur, peripheral pulses +2 with hair growth on toes RESPIRATORY: full breath sounds bilaterally with normal expansion GASTROINTESTINAL: soft, non-tender, normal bowel sounds MUSCULOSKELETAL: normal muscle mass, normal gait SKIN: +calluses on heels bilaterally, dry skin, nails normal, sites: left lower back: no skin irritation/issues Diabetic Foot Exam: Yes Inspection: Left - No ulcers or lesions noted and Right - No ulcers or lesions noted Pulses: Left Normal and Right Normal Monofilament Exam: Left - Normal and Right - Normal NEUROLOGIC: DTRs normal with normal recovery phase, PERRL, EOMI, no tremor of the outstretched hands, monofilament sensation intact bilaterally PSYCHIATRIC: mood and affect are normal OUTSIDE RECORDS: reviewed. Pertinent positives summarized in HPI LABS: Lab Results Component Value Date HGBA1C 7.1 (H) 11/03/2019 HGBA1C 7.3 (H) 03/15/2019 HGBA1C 7.5 (H) 12/14/2018 Lab Results Component Value Date CHO 174 03/15/2019 TRIG 181 (H) 03/15/2019 HDL 40 (L) 03/15/2019 LDL 98 03/15/2019 VLDL 36 03/15/2019 Lab Results Component Value Date CREATININE 0.81 11/04/2017 No components found for: EGFR Lab Results Component Value Date MICROALBCR 03/15/2019 Microalbumin less than linear limit, therefore no MALB/CRE ratio available Lab Results Component Value Date AST 30 11/04/2017 Lab Results Component Value Date ALT 30 11/04/2017 Lab Results Component Value Date TSH 1.940 03/15/2019 THYROIDAB <0.3 11/04/2017 Lab Results Component Value Date FREET4 0.94 11/04/2017 Lab Results Component Value Date [id number] 40 03/15/2019 A/P: 1. Diabetes Mellitus Type 1 - The patient was advised that She A1c was 7.1% , with prior A1C of 7.3%. Goal A1C <7, with no lows - We reviewed the goals for good glycemic control and the symptoms of low blood sugar. -Reviewed pump/glucometer download at length today. Hypoglycemia seen with any boluses recently. Also having hypoglycemia after correction. Some hyperglycemia related to recent UTI. -Patient's regimen is changed to reduced basal rates by 10% from 4.2 units/hour to 3.75 units/hour. She will call [facility] regarding re-call status of her pump and potential for pump upgrade -Adjusted I:SF from 1:17 to 1:20 -she is interested in 670G with integrated sensor- she will also contact her insurance November 2019 toupgrade -She covers all carbs and feels confident with carb counting accuracy - Patients last labs were reviewed. 2. Blood pressure -at goal today -not on medications for this M/C ratio was negative 03/2019 3. Lipids -not on medications for this 4. Hypoglycemia with unawareness -would benefit greatly from CGM, especially pump integrated with CGM -will prescribe nasal glucagon 5. Obesity -down 9 pounds since last visit; -she is working on watching her diet/more active 6. Vitamin D Deficiency -On supplement: vitamin D 2000 IUs once daily 7. Callus formation on feet -sees Dr. Bah -she mentioned the prescription not working well. Will discuss with Podiatry ROTARY DRILL OPERATOR regarding any otherpotential alternates Long-term insulin use Paradigm revel 723 admelog Basal rate: 0.00 : 3.75 units/hour 6.00 3.75 units/hour Total basal 90 units ICR 8.0 ISF 20 Target 00.00 100-120 06.30 100-120 10.00 100-120 Active insulin time 4 hrs Orders Placed This Encounter Glucose 4 GM Oral Tablet Chewable SM Alcohol Prep 70 % Pad Glucagon 3 MG/DOSE Nasal Powder (BAQSIMI ONE PACK) OneTouch Verio Flex System w/Device Kit RTC 3 months Diabetes Self-Management Education/Training (DSME/T) Per [facility] policy AMB J-19, the [facility] RN senior administrative services officer CDE may provide my patient with insulin adjustmentsand all diabetes management guidelines per approved policies AMB J-01 through AMB J-18. My patient may receive diabetes self- management education for any nursing, nutrition, or physical therapy needs which arise and require the expertise of a [facility] educator. Nuris Douglas, Laron-PAC Endocrinology, Diabetes and Metabolism [facility] documented in this encounter Plan of Treatment Date Type Specialty Care Team Description 02/06/2020 Office Visit Endocrinology Nuris Douglas PA [address] [place] [address] 05/21/2020 Office Visit Endocrinology Nuris Douglas PA [address] [place] [address] 06/10/2020 Office Visit Endocrinology Louie Bah DPM [address] [place] [address] 09/18/2020 Office Visit Endocrinology Chika Blair MD [address] [place] [address] [phone] Health Maintenance Due Date Last Done Comments MMR Vaccines (1 of 1 - Standard 1997 series) Varicella Vaccines (1 of 2 - 1997 2-dose childhood series) Pneumococcal Vaccine: Pediatrics 2002 (0 to 5 Years) and At-Risk Patients (6 to 64 Years) (1 of 1 - PPSV23) DTaP,Tdap,and Td Vaccines (1 - 2003 Tdap) HPV Vaccines (1 - Female 2-dose 2007 series) HIV Screening 2009 Chlamydia Screening 2012 Hepatitis B Vaccines (1 of 3 - 2015 Risk 3-dose series) Cervical Cancer Screening 3 years 2017 Influenza Vaccine 06/13/2019 Pneumococcal Vaccine: 65+ Years (1 2061 of 2 - PCV13) HIB Vaccines Aged Out No longer eligible based on patient's age to complete this topic Hepatitis A Vaccines Aged Out No longer eligible based on patient's age to complete this topic IPV Vaccines Aged Out No longer eligible based on patient's age to complete this topic documented as of this encounter Procedures Procedure Name Priority Date/Time Associated Comments Diagnosis POCT GLUCOSE, DOCKED Routine 11/03/2019 2:45 PM Results for this EST procedure are in the results section. POCT HEMOGLOBIN A1C, Routine 11/03/2019 2:35 PM Results for this DOCKED EST procedure are in the results section. documented in this encounter Results POCT glucose, docked (11/03/2019 2:45 PM EST) POC Glucose 65 (L) 70 - 140 mg/dL [facility] P[facility] Specimen Whole Blood Performing Organization Address City/State/Zipcode Phone Number POINT OF CARE TEST [address] [place] [address] [facility] [address] [place] [address] POCT Hemoglobin A1C, Docked (11/03/2019 2:35 PM EST) Hemoglobin A1C 7.1 (H) 4.0 - 6.0 % [facility] Estimated Avg Glucose 157 (H) <126 mg/dL [facility] POC Specimen Whole Blood Performing Organization Address City/State/Zipcode Phone Number POINT OF CARE TEST [address] [place] [address] [facility] [address] [place] [address] documented in this encounter Visit Diagnoses Diagnosis Type 1 diabetes mellitus with hyperglycemia - Primary Type I (juvenile type) diabetes mellitus without mention of complication, not stated as uncontrolled Insulin pump status Long-term insulin use Encounter for long-term (current) use of insulin Hypoglycemia unawareness in type 1 diabetes mellitus Type I (juvenile type) diabetes mellitus with other specified manifestations, not stated as uncontrolled Dyslipidemia Other and unspecified hyperlipidemia Vitamin D deficiency Unspecified vitamin D deficiency Morbid obesity with BMI of 40.0-44.9, adult Morbid obesity documented in this encounter
[2019-11-08 14:54] VITALS: BP 114/63
[2019-11-08 15:46] LABS: Influenza A Molecular Negative (Negative); Influenza B Molecular Negative (Negative)
--- NOTE | 2019-11-08 15:51 | UC ---
FLU HPI - HPI Summary HPI Summary: 24-year-old female presenting with sore throat, dry cough, body aches, chills, and fever 4 days. Patient states symptoms are worsening but not improving. Denies respiratory wheezing. Notes some nausea intermittently but denies vomiting. Has decreased appetite but normal fluid intake. Taking Tylenol for symptom relief. Patient states that other members in the household have recently tested positive for the flu and are being treated with Tamiflu. - History of Current Complaint Chief Complaint: UCGeneralIllness Stated Complaint: FLU SYMPTOMS Hx Obtained From: Patient Hx Last Menstrual Period: 11/08/19 Pain Intensity: 8 Pain Scale Used: 0-10 Numeric - Allergy/Home Medications Allergies/Adverse Reactions: Allergies Allergy/AdvReac Type Severity Reaction Status Date / Time vancomycin Allergy Hives Verified 11/08/19 14:49 wheat Allergy Diarrhea Verified 11/08/19 14:49 Home Medications: Home Medications Cholecalciferol TAB* [Vitamin D TAB*] 2,000 unit PO DAILY 07/04/18 [History Confirmed 11/08/19] Loratadine [Claritin 10 MG CAP] 10 mg PO DAILY 07/04/18 [History Confirmed 11/08] Insulin Lispro [Admelog 100 units/ml 10 ml VIAL] 0 unit SQ DAILY 02/01/19 [ History Confirmed 11/08/19] Albuterol HFA INHALER* [Ventolin HFA Inhaler*] 1 - 2 puff INH Q4H PRN #1 mdi [Rx Confirmed 11/08/19] Albuterol 2.5MG/3ML (0.083%)* [Ventolin 2.5 MG/3 ML NEB.JORGE*] 2.5 mg INH Q4H PRN #90 each 08/05/19 [Rx Confirmed 11/08/19] Ethinyl Estradiol/Drospirenone [Drospirenone-Ee 3-0.03 mg Tab] 1 tab PO DAILY [History Confirmed 11/08/19] Omeprazole CAP (NF) [Prilosec CAP* 20 MG] 20 mg PO DAILY 09/18/19 [History Confirmed 11/08/19] Ondansetron ODT TAB* [Zofran 4 MG Odt TAB*] 4 mg PO Q6H PRN #12 tab.odt [Rx Confirmed 11/08/19] Cephalexin CAP* [Keflex CAP*] 500 mg PO TID #21 cap 11/01/19 [Rx Confirmed 11/08] Fluconazole 150 MG TAB* [Diflucan 150 MG TAB*] 150 mg PO ONCE #2 tablet [Rx Confirmed 11/08/19] Acetaminophen [7T Gummy Es] 1 tab PO ONCE PRN 11/08/19 [History Confirmed ] PMH/Surg Hx/FS Hx/Imm Hx Other History Of: Negative For: Anticoagulant Therapy - Surgical History Surgical History: Yes Surgery Procedure, Year, and Place: appy 2016, cyst removed from chest - Family History Known Family History: Positive: None, Diabetes - sister and grandmother Family History: no cardio vascular issues reported in family lineage - Social History Alcohol Use: Occasionally Substance Use Type: Marijuana Smoking Status (MU): Former Smoker Type: eCigarettes - Immunization History Most Recent Influenza Vaccination: 2015 Most Recent Tetanus Shot: Unknown Most Recent Pneumonia Vaccination: Never Review of Systems All Other Systems Reviewed And Are Negative: Yes Constitutional: Positive: Fever, Chills ENT: Positive: Sore Throat Respiratory: Positive: Cough. Negative: Shortness Of Breath Cardiovascular: Positive: Negative Gastrointestinal: Positive: Nausea. Negative: Vomiting Musculoskeletal: Positive: Myalgia Neurological/Mental Status: Positive: Negative Physical Exam - Summary Physical Exam Summary: Vital Signs Reviewed: Yes A+Ox3, no distress Eyes: Conjunctiva Clear ENT: Hearing grossly normal, TM x 2 clear, moist, uvula midline, no exudate, + pharyngeal erythema Neck: Positive: Supple Respiratory: Positive: No respiratory distress, No accessory muscle use + CTA throughout no w/r Cardiovascular: RRR nl s1, s2 no m/r Musculoskeletal Exam: HERNANDEZ x 4 without difficulty Neurological: Positive: Alert Psychological: Positive: age appropriate behavior Skin: Positive: no rash, no ecchymosis Vital Signs: Initial Vital Signs Temp 97.8 F 11/08/19 14:47 Pulse 90 11/08/19 14:47 Resp 18 11/08/19 14:47 BP 114/63 11/08/19 14:47 Pulse Ox 99 11/08/19 14:47 Lab Results 11/08/19 Range/Units 15:34 Influenza A (Rapid) Negative (Negative) Influenza B (Rapid) Negative (Negative) Flu Course/Dx - Course Course Of Treatment: Negative rapid flu. Discussed viral illness with patient and instructed to continue with symptomatic treatment. Instructed to follow up with PCP if symptoms persist. Patient voiced understanding and agreed with treatment plan. - Differential Dx/Diagnosis Differential Diagnosis/HQI/PQRI: Influenza, Upper Respiratory Infection Provider Diagnosis: Flu-like symptoms Discharge ED - Sign-Out/Discharge Documenting (check all that apply): Patient Departure All imaging exams completed and their final reports reviewed: No Studies - Discharge Plan Condition: Stable Disposition: HOME Patient Education Materials: Viral Syndrome (ED) Forms: *Work Release Referrals: Vasquez Crowder, TEST SPECIALIST [Primary Care Provider] - If Needed Additional Instructions: You tested negative for influenza today. You may continue with tylenol for fever and pain relief. Get plenty of rest and increase your fluid intake. Follow up with your primary care provider if symptoms do not improve within 7 days. - Billing Disposition and Condition Condition: STABLE Disposition: Home
== END 2019-11-08 16:19 | disposition home or self-care (01) ==
LOC: UCEAST 14:37
DX: J02.9 Acute pharyngitis, unspecified (principal); R05 Cough; R50.9 Fever, unspecified; R52 Pain, unspecified; R63.8 Other symptoms and signs concerning food and fluid intake; Z88.1 Allergy status to other antibiotic agents; Z91.018 Allergy to other foods; Z87.891 Personal history of nicotine dependence
CPT/HCPCS: 99211; G0463

== ENCOUNTER 2019-11-10 11:07 | Emergency (ER) | payer OTHER ==
--- NOTE | 2019-11-10 11:27 | ED ---
Complex/Multi-Sys Presentation - HPI Summary HPI Summary: This patient is a 24 year old female presenting to [facility] with a chief complaint of flu-like symptoms since 2 days ago. She reports abdominal pain, sore throat, nausea, diarrhea, cold chills, diaphoresis, dizziness, weakness, and body aches. She states she went to urgent care 2 days ago and she tested negative for the flu. She states she feels worse today and multiple family members have influenza. She states her abdominal pain worsens when she urinates. Pt denies any fever, erythema of eyes, CP, SOB, cough, vomiting, dysuria, hematuria, myalgia, edema, or rash. - History Of Current Complaint Chief Complaint: EDFluSymptoms Time Seen by Provider: 11/10/19 11:18 Hx Obtained From: Patient Onset/Duration: Lasting Days Timing: Days Associated Signs And Symptoms: Positive: Dizziness, Weakness, Nausea, Diarrhea, Abdominal Pain, Fever, Diaphoresis. Negative: Vomiting - Allergies/Home Medications Allergies/Adverse Reactions: Allergies Allergy/AdvReac Type Severity Reaction Status Date / Time vancomycin Allergy Hives Verified 11/10/19 11:12 wheat Allergy Diarrhea Verified 11/10/19 11:12 Home Medications: Home Medications Cholecalciferol TAB* [Vitamin D TAB*] 2,000 unit PO DAILY 07/04/18 [History Confirmed 11/10/19] Loratadine [Claritin 10 MG CAP] 10 mg PO DAILY 07/04/18 [History Confirmed 11/10] Insulin Lispro [Admelog 100 units/ml 10 ml VIAL] 0 unit SQ DAILY 02/01/19 [ History Confirmed 11/10/19] Ethinyl Estradiol/Drospirenone [Drospirenone-Ee 3-0.03 mg Tab] 1 tab PO DAILY [History Confirmed 11/10/19] Omeprazole CAP (NF) [Prilosec CAP* 20 MG] 20 mg PO DAILY 09/18/19 [History Confirmed 11/10/19] Metoclopramide TAB* [Reglan TAB*] 10 mg PO Q8H PRN #12 tab 11/10/19 [Rx] Ondansetron ODT TAB* [Zofran 4 MG Odt TAB*] 4 mg PO Q8H PRN #10 tab.odt [Rx] Oseltamivir CAP* [Tamiflu CAP*] 75 mg PO BID #10 cap 11/10/19 [Rx] PMH/Surg Hx/FS Hx/Imm Hx Endocrine/Hematology History: Reports: Hx Diabetes - type 1 - uses insulin pump Denies: Hx Anticoagulant Therapy, Hx Blood Disorders, Hx Thyroid Disease Cardiovascular History: Denies: Hx Congestive Heart Failure, Hx Hypertension Respiratory History: Reports: Hx Asthma Denies: Hx Chronic Obstructive Pulmonary Disease (COPD) GI History: Denies: Hx Ulcer History: Denies: Hx Renal Disease Sensory History: Reports: Hx Contacts or Glasses Opthamlomology History: Reports: Hx Contacts or Glasses Psychiatric History: Reports: Hx Anxiety, Hx Depression - Surgical History Surgery Procedure, Year, and Place: app2015, cyst removed from chest - Immunization History Date of Tetanus Vaccine: Unk Date of Influenza Vaccine: Fall 2014 Infectious Disease History: No Infectious Disease History: Reports: Hx of Known/Suspected MRSA - tx'd w/ IV vancomycin at [facility] - unsure of MRSA status Denies: Hx Hepatitis, Hx Human Immunodeficiency Virus (HIV), Traveled Outside the in Last 30 Days - Family History Known Family History: Positive: None, Diabetes - sister and grandmother Family History: no cardio vascular issues reported in family lineage - Social History Alcohol Use: Occasionally Hx Substance Use: No Substance Use Type: Reports: Marijuana Hx Tobacco Use: No Smoking Status (MU): Former Smoker Type: eCigarettes Review of Systems Positive: Fever, Chills, Skin Diaphoresis, Other - Body Aches Negative: Erythema Positive: Sore Throat Negative: Chest Pain Negative: Shortness Of Breath, Cough Positive: Abdominal Pain, Diarrhea, Nausea. Negative: Vomiting Negative: dysuria, hematuria Negative: Myalgia, Edema Negative: Rash Neurological/Mental Status: Other - Dizziness Positive: Weakness All Other Systems Reviewed And Are Negative: No Physical Exam - Summary Physical Exam Summary: Constitutional: Well-developed, Well-nourished, Alert. (-) Distressed Skin: Warm, Dry HENT: Normocephalic; Atraumatic Eyes: Conjunctiva normal Neck: Musculoskeletal ROM normal neck. (-) JVD, (-) Stridor, (-) Tracheal deviation Cardio: Rhythm regular, rate normal, Heart sounds normal; Intact distal pulses; The pedal pulses are 2+ and symmetric. Radial pulses are 2+ and symmetric. (-) Murmur Pulmonary/Chest wall: Effort normal. (-) Respiratory distress, (-) Wheezes, (-) Rales Abd: Soft, (-) tenderness, (-) Distension, (-) Guarding, (-) Rebound Musculoskeletal: (-) Edema Lymph: (-) Cervical adenopathy Neuro: Alert, Oriented x3 Psych: Mood and affect Normal Triage Information Reviewed: Yes Vital Signs On Initial Exam: Initial Vitals Temp Pulse Resp BP Pulse Ox 97.4 F 88 16 131/88 97 11/10/19 11:09 11/10/19 11:09 11/10/19 11:09 11/10/19 11:09 11/10/19 11:09 Vital Signs Reviewed: Yes Procedures - Sedation Patient Received Moderate/Deep Sedation with Procedure: No Diagnostics - Vital Signs Vital Signs Temp Pulse Resp BP Pulse Ox 11/10/19 11:09 97.4 F 88 16 131/88 97 - Laboratory Result Diagrams: 11/10/19 12:01 11/10/19 15:43 Lab Statement: Any lab studies that have been ordered have been reviewed, and results considered in the medical decision making process. - Ultrasound No standard instances Ultrasound Interpretation Completed By: Radiologist Summary of Ultrasound Findings: Renal: Unremarkable sonographic appearance of the kidneys. ED Provider has reviewed this report. - EKG 1142 Cardiac Rate: NL - 79 BPM EKG Rhythm: Sinus Rhythm Summary of EKG Findings: No STEMI. ED Physician has reviewed and interpreted this EKG. Re-Evaluation - Re-Evaluation First Eval Re-Evaluation Time: 15:37 Comment: Her blood glucose is 40, her insulin pump was shut down and she reports nausea and is not eating. Second Eval Re-Evaluation Time: 17:39 Comment: Patient feels better, she tolerated PO, ate turkey sandwhich, still reports mild nausea and would like to go home. Complex Multi-Symp Course/Dx Course Of Treatment: This patient is a 24 year old female presenting to [facility] with a chief complaint of flu-like symptoms since 2 days ago. She reports abdominal pain, sore throat, nausea, diarrhea, cold chills, diaphoresis, dizziness, weakness, and body aches. She states she went to urgent care 2 days ago and she tested negative for the flu. She states she feels worse today and multiple family members have influenza. She states her abdominal pain worsens when she urinates. Labs reveal WBC 11.3 H, Absolute Neuts 8.1 H, Absoulte Eos 0.7 H, Glucose 105 H, Ur Specific [place] 1.005 L, Urine Blood 1+ A, Ur Squamous Epithelial Cells Present A. Patient administered NS, Benadryl, Reglan , Toradol, and Zofran in the ED. Patient initially felt worse, with blood glucose falling to 40 upon reeval, insulin pump was stopped. After 2 hours patient was able to tolerate PO and felt ready to go home. Patient was advised to consume nutritious liquids and to adjust the insulin settings on her pump when she is sick. Plan for discharge was discussed with the patient and she understands and agrees with this plan. - Diagnoses Provider Diagnoses: Influenza, Gastroenteritis, Hypoglycemia Discharge ED - Sign-Out/Discharge Documenting (check all that apply): Patient Departure - Discharge - Discharge Plan Condition: Stable Disposition: HOME Prescriptions: Metoclopramide TAB* [Reglan TAB*] 10 mg PO Q8H PRN #12 tab PRN Reason: Nausea/Vomiting Ondansetron ODT TAB* [Zofran 4 MG Odt TAB*] 4 mg PO Q8H PRN #10 tab.odt PRN Reason: Nausea Oseltamivir CAP* [Tamiflu CAP*] 75 mg PO BID #10 cap Patient Education Materials: Hypoglycemia in a Person with Diabetes (ED), Gastroenteritis (ED) Forms: *Work Release Referrals: Vasquez Crowder, [employer]ERAL CAR DRIVER [Primary Care Provider] - Additional Instructions: Discontinue your Tamiflu if you have worsening nausea. Return to ED with new or worsening symptoms. - Billing Disposition and Condition Condition: STABLE Disposition: Home - Attestation Statements Document Initiated by Scribe: Yes Documenting Scribe: Faustino Ontiveros Provider For Whom Scribe is Documenting (Include Credential): Lopez Slater MD Scribe Attestation: Faustino Cardenas, scribed for Lopez Slater MD on 11/14/19 at 1100. Status of Scribe Document: Viewed
[2019-11-10] MEDS ORDERED: NS 0.9% 1000 ML** 1,000 ML IV.FLUID IV ONE (11:38)
[2019-11-10] MEDS ORDERED: Ketorolac INJ* 30 MG/ML 1 ML VIAL IV PUSH ONE (11:39)
[2019-11-10] MEDS ORDERED: Ondansetron INJ* 2 MG/ML VIAL IV ONE (12:05)
[2019-11-10 12:22] LABS: ABS Basophils 0.1 10^3/ul (0-0.2); ABS Eosinophils 0.7 10^3/ul (0-0.6); ABS Lymphocytes 1.7 10^3/ul (1.0-4.8); ABS Monocytes 0.7 10^3/ul (0-0.8); ABS Neutrophils 8.1 10^3/ul (1.5-7.7); Eosinophil % 6.2 %; Hematocrit 40 % (35-47); Lymphocyte % 14.7 %; Mean Corpuscular HGB Conc 33 g/dL (31-36); Mean Corpuscular Hemoglobin 28 pg (27-31); Mean Corpuscular Volume 86 fL (80-97); Mean Platelet Volume 7.8 fL (7.4-10.4); Nucleated Red Blood Cells % 0.1; Platelet Count 376 10^3/uL (150-450); Red Blood Count 4.61 10^6 /uL (3.70-4.87); Red Cell Distribution Width 14 % (10-15); White Blood Count 11.3 10^3/uL (3.5-10.8)
[2019-11-10 12:30] LABS: Rapid Strep Molecular Negative (Negative)
[2019-11-10 12:39] LABS: Activated Partial Thrombo Time 32.7 seconds (26.0-38.0); INR 1.03 (0.82-1.09)
[2019-11-10 12:51] LABS: Troponin I 0.01 ng/mL (<0.03)
[2019-11-10 12:54] LABS: Albumin 3.6 g/dL (3.2-5.2); Albumin/Globulin Ratio 1.1 (1-3); BUN/Creatinine Ratio 11.1 (8-20); Calcium 8.7 mg/dL (8.6-10.3); EGFR Non-African American 87.6 (>60); Globulin 3.4 g/dL (2-4); Potassium 3.6 mmol/L (3.5-5.0); Total Bilirubin 0.3 mg/dL (0.2-1.0)
[2019-11-10] MEDS ORDERED: diPHENhydraMINE IV* 50 MG/ML 1 ml VIAL (BENADRYL) SLOW PUSH ONE (13:09)
[2019-11-10] MEDS ORDERED: Metoclopramide IV* 5 MG/ML 2 ML VIAL IV SLOW PU ONE ×2 (13:09→15:40)
[2019-11-10 13:19] LABS: Urine Appearance Cloudy; Urine Bilirubin Negative (Negative); Urine Blood 1+ (Negative); Urine Color Straw; Urine Glucose Negative (Negative); Urine Ketones Negative (Negative); Urine Nitrite Negative (Negative); Urine Protein Negative (Negative); Urine Specific Gravity 1.005 (1.010-1.030); Urine Urobilinogen Negative (Negative)
[2019-11-10 13:21] LABS: Urine Bacteria Absent (Absent); Urine Red Blood Cell Absent (Absent); Urine Squamous Epithelial Cell Present (Absent); Urine White Blood Cell Trace(0-5/hpf) (Absent)
[2019-11-10] MEDS ORDERED: D5W 1/2 NS 1000 ML BAG* 1,000 ML IV SCH (16:00)
[2019-11-10 16:22] LABS: BUN/Creatinine Ratio 9.3 (8-20); Calcium 8.4 mg/dL (8.6-10.3); EGFR African American 115.9 (>60); EGFR Non-African American 95.8 (>60); Potassium 3.5 mmol/L (3.5-5.0)
[2019-11-10] MEDS ORDERED: D5W 1/2 NS 1000 ML BAG* 1,000 ML IV ONE (17:00)
[2019-11-10] MEDS ORDERED: Metoclopramide TAB* 10 MG PO ONE (17:39)
[2019-11-10] MEDS ORDERED: Ondansetron ODT TAB* 4 MG SL ONE (17:39)
[2019-11-10 18:20] VITALS: BP 126/89
== END 2019-11-10 18:18 | disposition home or self-care (01) ==
LOC: ED 11:07
DX: J11.1 Influenza due to unidentified influenza virus with other respiratory manifestations (principal); K52.9 Noninfective gastroenteritis and colitis, unspecified; E10.649 Type 1 diabetes mellitus with hypoglycemia without coma; J45.909 Unspecified asthma, uncomplicated; F41.9 Anxiety disorder, unspecified; F32.9 Major depressive disorder, single episode, unspecified; Z87.891 Personal history of nicotine dependence; Z90.89 Acquired absence of other organs; Z96.41 Presence of insulin pump (external) (internal); Z79.4 Long term (current) use of insulin; Z79.899 Other long term (current) drug therapy; Z88.1 Allergy status to other antibiotic agents
CPT/HCPCS: 36415; 76775; 80048; 80053; 81003; 81015; 83605; 84484; 85025; 85610; 85730; 87040; 87086; 87651; 93005; 96361; 96365; 96366; 96375; 96376; 99285; A9270-GY; J1200; J1885; J2405; J2765

== ENCOUNTER 2020-08-12 12:27 | Inpatient (IN) ==
[2020-08-12] MEDS ORDERED: NS 0.9% 1000 ml BAG 1,000 ML IV ONE ×2 (12:53→14:06)
[2020-08-12] MEDS ORDERED: Ondansetron 4 mg VIAL 2 MG/ML 2 ml VIAL IV ONE ×2 (12:54→16:19)
[2020-08-12 13:30] LABS: ABS Basophils 0.1 10^3/ul (0-0.2); ABS Eosinophils 0.1 10^3/ul (0-0.6); ABS Lymphocytes 0.7 10^3/ul (1.0-4.8); ABS Monocytes 1.4 10^3/ul (0-0.8); ABS Neutrophils 19.4 10^3/ul (1.5-7.7); Eosinophil % 0.4 %; Hematocrit 39 % (35-47); Hemoglobin 12.7 g/dL (12.0-16.0); Lymphocyte % 3.1 %; Mean Corpuscular HGB Conc 32 g/dL (31-36); Mean Corpuscular Hemoglobin 29 pg (27-31); Mean Corpuscular Volume 90 fL (80-97); Mean Platelet Volume 8.5 fL (7.4-10.4); Platelet Count 274 10^3/uL (150-450); Red Blood Count 4.37 10^6 /uL (3.70-4.87); Red Cell Distribution Width 14 % (10-15); White Blood Count 21.6 10^3/uL (3.5-10.8)
[2020-08-12 13:46] LABS: ALT 9 U/L (7-52); AST 11 U/L (13-39); Albumin 3.4 g/dL (3.2-5.2); Alkaline Phosphatase 113 U/L (34-104); Anion Gap 8 mmol/L (2-11); BUN/Creatinine Ratio 6.9 (8-20); Blood Urea Nitrogen 7 mg/dL (6-24); CO2 Carbon Dioxide 25 mmol/L (22-32); Calcium 9.3 mg/dL (8.6-10.3); Chloride 101 mmol/L (101-111); EGFR African American 81.3 (>60); EGFR Non-African American 67.2 (>60); Globulin 3.5 g/dL (2-4); Glucose 198 mg/dL (70-100); Lipase < 10 U/L (11.0-82.0); Magnesium 1.5 mg/dL (1.9-2.7); Potassium 4.3 mmol/L (3.5-5.0); Sodium 134 mmol/L (135-145); Total Protein 6.9 g/dL (6.4-8.9)
[2020-08-12 13:52] LABS: HCG Pregnancy 2.62 mIU/mL
[2020-08-12] MEDS ORDERED: Iodixanol (CONTRAST) 320 MG/ML 100 ML SDV IV ONE (14:10)
[2020-08-12 14:49] LABS: Urine Appearance Cloudy; Urine Bilirubin Negative (Negative); Urine Blood 2+ (Negative); Urine Color Yellow; Urine Glucose 1+(50 mg/dL) (Negative); Urine Ketones 1+ (Negative); Urine Nitrite Positive (Negative); Urine Protein 2+(100 mg/dL) (Negative); Urine Specific Gravity 1.011 (1.010-1.030); Urine Urobilinogen Negative (Negative)
[2020-08-12 14:57] LABS: Urine Bacteria 1+ (Absent); Urine Red Blood Cell 2+(6-10/hpf) (Absent); Urine Squamous Epithelial Cell Present (Absent); Urine White Blood Cell 3+(>20/hpf) (Absent)
[2020-08-12] MEDS ORDERED: cefTRIAXone 1 gm/50 mL NS BAG 1 GM/50 ML BAG IVPB ONE (15:20)
[2020-08-12] MEDS ORDERED: Al Hydrox/Mg Hydrox/Simet LIQ 30 ML UDC PO PRN (17:22)
[2020-08-12] MEDS ORDERED: NS 0.9% 1000 ml BAG 2,000 ML IV ONE (17:24)
[2020-08-12] MEDS ORDERED: Magnesium Sulfate 2 gm BAG 2 GM/50 ML BAG IVPB ONE (18:09)
[2020-08-12] MEDS: NS 0.9% 1000 ml BAG 1,000 ML IV SCH (19:35)
[2020-08-12] MEDS ORDERED: Dextrose 50% Syringe 50 ml 25 GM/50 ML SYRINGE IV PUSH PRN (19:55)
[2020-08-12] MEDS: Ondansetron 4 mg VIAL 2 MG/ML 2 ml VIAL IV PRN (22:02)
[2020-08-12] MEDS: oxyCODONE/Acetamin 5/325 mg TAB PO PRN (22:05)
[2020-08-12] MEDS ORDERED: Calcium Carb (TUMS) 500 mg CHEW TAB PO ONE (23:31)
[2020-08-13] MEDS: NS 0.9% 1000 ml BAG 1,000 ML IV SCH ×2 (02:31→18:47)
[2020-08-13] MEDS: oxyCODONE/Acetamin 5/325 mg TAB PO PRN ×4 (04:41→20:07)
[2020-08-13] MEDS: Ondansetron 4 mg VIAL 2 MG/ML 2 ml VIAL IV PRN ×4 (04:59→20:08)
[2020-08-13 06:34] LABS: ABS Basophils 0.1 10^3/ul (0-0.2); ABS Eosinophils 0.2 10^3/ul (0-0.6); ABS Monocytes 1.4 10^3/ul (0-0.8); ABS Neutrophils 14.8 10^3/ul (1.5-7.7); Eosinophil % 0.9 %; Hematocrit 32 % (35-47); Hemoglobin 10.6 g/dL (12.0-16.0); Lymphocyte % 5.9 %; Mean Corpuscular HGB Conc 33 g/dL (31-36); Mean Corpuscular Hemoglobin 30 pg (27-31); Mean Corpuscular Volume 89 fL (80-97); Mean Platelet Volume 8.4 fL (7.4-10.4); Platelet Count 219 10^3/uL (150-450); Red Cell Distribution Width 14 % (10-15); White Blood Count 17.5 10^3/uL (3.5-10.8)
[2020-08-13 06:48] LABS: BUN/Creatinine Ratio 13.5 (8-20); Calcium 7.9 mg/dL (8.6-10.3); EGFR African American 95.1 (>60); EGFR Non-African American 78.6 (>60); Magnesium 2.1 mg/dL (1.9-2.7); Potassium 4.1 mmol/L (3.5-5.0)
[2020-08-13] MEDS: Cholecalciferol (VIT D3) 1,000 unit TAB PO SCH (09:52)
[2020-08-13] MEDS ORDERED: Prochlorperazine 5 mg/ml 2 ml VIAL (10 mg) IV PRN (13:48)
[2020-08-13] MEDS: cefTRIAXone 1 gm/50 mL NS BAG 1 GM/50 ML BAG IVPB SCH (14:58)
[2020-08-14] MEDS: NS 0.9% 1000 ml BAG 1,000 ML IV SCH (01:38)
[2020-08-14] MEDS: Ondansetron 4 mg VIAL 2 MG/ML 2 ml VIAL IV PRN ×5 (01:44→22:11)
[2020-08-14] MEDS: oxyCODONE/Acetamin 5/325 mg TAB PO PRN ×3 (04:50→21:45)
[2020-08-14] MEDS ORDERED: Furosemide 20 mg/2 ml IV VIAL IV SLOW PU ONE (09:16)
[2020-08-14 09:27] LABS: ABS Basophils 0.1 10^3/ul (0-0.2); ABS Eosinophils 0.4 10^3/ul (0-0.6); ABS Lymphocytes 1.3 10^3/ul (1.0-4.8); ABS Monocytes 1.3 10^3/ul (0-0.8); ABS Neutrophils 11.3 10^3/ul (1.5-7.7); Eosinophil % 2.6 %; Hematocrit 31 % (35-47); Hemoglobin 10.5 g/dL (12.0-16.0); Lymphocyte % 8.8 %; Mean Corpuscular HGB Conc 33 g/dL (31-36); Mean Corpuscular Hemoglobin 29 pg (27-31); Mean Corpuscular Volume 88 fL (80-97); Mean Platelet Volume 7.9 fL (7.4-10.4); Platelet Count 257 10^3/uL (150-450); Red Blood Count 3.56 10^6 /uL (3.70-4.87); Red Cell Distribution Width 14 % (10-15); White Blood Count 14.3 10^3/uL (3.5-10.8)
[2020-08-14] MEDS: Cholecalciferol (VIT D3) 1,000 unit TAB PO SCH (09:41)
[2020-08-14] MEDS: cefTRIAXone 1 gm/50 mL NS BAG 1 GM/50 ML BAG IVPB SCH (15:16)
[2020-08-15] MEDS: oxyCODONE/Acetamin 5/325 mg TAB PO PRN ×2 (05:29→11:42)
[2020-08-15] MEDS: Ondansetron 4 mg VIAL 2 MG/ML 2 ml VIAL IV PRN (05:29)
[2020-08-15] MEDS: Cholecalciferol (VIT D3) 1,000 unit TAB PO SCH (08:03)
[2020-08-15 15:31] VITALS: BP 146/86
== END 2020-08-15 16:10 | disposition home or self-care (01) ==
LOC: MED 12:27 → ED 12:27 → MED 08-14 04:16
PROVIDERS: ADMIT Pediatrics; ATTEND Internal Medicine

== ENCOUNTER 2021-11-16 17:10 | Inpatient (IN) ==
[2021-11-16] MEDS ORDERED: Buffered Lidocaine 1% SYRIN 1 ml INTRADERM ONE ×3 (17:32→21:34)
[2021-11-16] MEDS ORDERED: Lactated Ringers 1000 ml BAG 1,000 ML IV ONE (17:54)
[2021-11-16] MEDS ORDERED: Lactated Ringers 1000 ml BAG 1,000 ML IV SCH ×3 (18:00→23:45)
[2021-11-16 18:13] LABS: ABS Basophils 0.1 10^3/ul (0-0.2); ABS Eosinophils 0.2 10^3/ul (0-0.6); ABS Lymphocytes 1.5 10^3/ul (1.0-4.8); ABS Monocytes 0.9 10^3/ul (0-0.8); ABS Neutrophils 14.2 10^3/ul (1.5-7.7); Eosinophil % 1.1 %; Hematocrit 34 % (35-47); Hemoglobin 11.7 g/dL (12.0-16.0); Lymphocyte % 9.1 %; Mean Corpuscular HGB Conc 34 g/dL (31-36); Mean Corpuscular Hemoglobin 31 pg (27-31); Mean Corpuscular Volume 90 fL (80-97); Mean Platelet Volume 7.6 fL (7.4-10.4); Platelet Count 350 10^3/uL (150-450); Red Cell Distribution Width 13 % (10-15); White Blood Count 16.9 10^3/uL (3.5-10.8)
[2021-11-16] MEDS ORDERED: INSULIN PUMP CONTROLLER SCH (18:15)
[2021-11-16] MEDS ORDERED: Oxytocin in LR 20 UNITS/1,000 ML BAG IVPB ONE ×2 (18:35→21:42)
[2021-11-16 18:41] LABS: Calcium 8.9 mg/dL (8.6-10.3); eGFR CKD-EPI 129.3 (>60)
[2021-11-16 19:12] LABS: Potassium 3.7 mmol/L (3.5-5.0)
[2021-11-16] MEDS ORDERED: Midazolam 2 mg/2 ml VIAL 1 mg/ml 2 ml VIAL (2 mg) ONE (21:25)
[2021-11-16] MEDS ORDERED: fentaNYL 100 mcg/2 ml 50 MCG/ML VIAL ONE (21:25)
[2021-11-16] MEDS ORDERED: Sodium Citrate/Citric Acid LIQ 15 ML UDC PO ONE (21:34)
[2021-11-16] MEDS ORDERED: Famotidine IV 10 MG/ML 2 ml VIAL (20 mg) IV ONE (21:34)
[2021-11-16] MEDS ORDERED: Famotidine IV 10 MG/ML 2 ml VIAL (20 mg) ONE (21:54)
[2021-11-16] MEDS ORDERED: Sodium Citrate/Citric Acid LIQ 15 ML UDC ONE (21:54)
[2021-11-16] MEDS ORDERED: ceFAZolin VIAL 2 GM in NS 0.9% 100 ml BAG 100 ML IVPB ONE (22:02)
[2021-11-16] MEDS ORDERED: ceFAZolin 2 GM PREMIX 2 GM/50 ML BAG ONE (22:30)
[2021-11-16] MEDS ORDERED: fentaNYL 100 mcg/2 ml 50 MCG/ML VIAL IV PRN (22:42)
[2021-11-16] MEDS ORDERED: Ondansetron 4 mg VIAL 2 MG/ML 2 ml VIAL IV PRN (22:42)
[2021-11-16] MEDS ORDERED: oxyCODONE/Acetamin 5/325 mg TAB PO PRN (22:42)
[2021-11-16] MEDS ORDERED: Naloxone 0.4 mg VIAL 0.4 mg/ml 1 ml VIAL IV PRN (22:42)
[2021-11-16] MEDS ORDERED: Prochlorperazine 5 mg/ml 2 ml VIAL (10 mg) IV PRN (22:42)
[2021-11-16] MEDS ORDERED: HYDROcodone/ACETAMIN 5/325 mg TAB PO PRN (22:42)
[2021-11-16] MEDS ORDERED: Morphine 4 MG/ML VIAL (1 ml) IV PRN (22:42)
[2021-11-16] MEDS ORDERED: Ondansetron 4 mg VIAL 2 MG/ML 2 ml VIAL ONE (23:05)
[2021-11-16] MEDS ORDERED: Witch Hazel PAD JAR TOPICAL PRN (23:35)
[2021-11-16] MEDS ORDERED: Oxytocin in LR 20 UNITS/1,000 ML BAG IVPB SCH (23:45)
[2021-11-17] MEDS ORDERED: Morphine 4 MG/ML VIAL (1 ml) ONE (00:24)
[2021-11-17 06:19] LABS: ABS Basophils 0.1 10^3/ul (0-0.2); ABS Eosinophils 0.2 10^3/ul (0-0.6); ABS Lymphocytes 1.9 10^3/ul (1.0-4.8); Eosinophil % 1.1 %; Hematocrit 30 % (35-47); Hemoglobin 10.1 g/dL (12.0-16.0); Lymphocyte % 12.7 %; Mean Corpuscular HGB Conc 34 g/dL (31-36); Mean Corpuscular Hemoglobin 30 pg (27-31); Mean Corpuscular Volume 90 fL (80-97); Mean Platelet Volume 7.4 fL (7.4-10.4); Nucleated Red Blood Cells % 0.1; Platelet Count 325 10^3/uL (150-450); Red Blood Count 3.33 10^6 /uL (3.70-4.87); Red Cell Distribution Width 14 % (10-15); White Blood Count 15.1 10^3/uL (3.5-10.8)
[2021-11-17 11:28] VITALS: BP 137/64
[2021-11-17 20:24] LABS: Hepatitis B Surface Antigen Nonreactive (Nonreactive)
[2021-11-17 20:33] LABS: HIV 4th Generation Nonreactive (Nonreactive)
== END 2021-11-17 13:57 | disposition home or self-care (01) | DRG 541 ==
LOC: MCHOBOUT 17:10 → MCHOB 17:48
PROVIDERS: ADMIT Obstetrics & Gynecology; ATTEND Obstetrics & Gynecology
PROC: O.GYD&C (2021-11-16 22:30)